=== PATIENT | female | born 1970 | race Caucasian/White ===

== ENCOUNTER 2020-03-07 12:01 | Emergency (ER) | payer OTHER ==
--- OUTSIDE RECORDS SUMMARY | 2020-03-07 12:03 | XMS REPORT | Clinical Summary ---
:1970 Author Organization [facility] Address [address] [place] [id number] Care Team Providers Name Role Phone Asked, Pcp Primary Care Provider Unavailable Allergies Not on File Medications Not on file Active Problems Not on file Encounters Date Type Specialty Care Team Description 09/15/2019 Transcribe Orders Procedural Sotero Khalil nsion, unspecified type (Primary Dx); Cardiology MD Juani Dyspnea on exer tion 09/01/2019 Transcribe Orders Procedural Sotero Khalil al hypertension, malignant (Primary Dx); Cardiology MD Juani Other forms of dyspnea after 03/07/2019 Social History Tobacco Use Types Packs/Day Years Used Date Never Assessed Sex Assigned at Date Recorded Not on file Job Start Date Occupation Industry Not on file Not on file Not on file Travel History Travel Start Travel End No recent travel history available. 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 after 03/07/[address] heart scan w physican order (09/15/2019 3:33 PM MECHANICAL CAD DRAFTER) Specimen Narrative Performed At This result has an attachment that is no t available. [facility] Nuclear Cardiology and Card iac CT [address] [facility] [address] [place] Calcium Scoring Re port Pat.Name: PAGE TOLEDO Pat.ID: [id number]Date: 09/15/2019 Refer.MD: SOTERO KHALIL MD Exam Time: 3:45:00 PM Study Type:CT Calcium Scoring Height: 66in Weight: 255lb BSA: 2.22 m2 Age: 12 1970,49Y Sex: FEMALE HR: 78 bpm Nuclear Tech:ESHA Salas)(CT) Pat. Stat.:Outpatient CPT - 4: [facility] Event ID:[id number] Order ID: [id number] Procedures: CT Flash mode Race: C SUMMARY: Technique: Sequential 3mm CT cuts were obtained through the chest using the Siemens Somatom Force CT scanner with ECG gating. In teractive image viewing and volumetric display and analysis were also performed. The CAC score was quantified using the Agatston scoring me thod. Non-contrast cardiac CT results are as follows: The total Coronary Artery Calcium Score (CACS) is 0 (Z ERO). The non-contrast CT shows a normal cardiac size, no pe ricardial abnormalities, a normal aortic root of 3.6cm, a normal ascending thoracic aorta of 3.5cm and a normal descending thor acic aorta of 2.6cm. The left main and right coronary arteries reji ear to originate normally from the left and right sinus of Valsalva. The right coronary artery is dominant. Non-Cardiac Findings: Fatty infiltration of the hilda er (HU 28). Conclusion: Normal non-contrast cardiac CT. The coronary artery ca lcium score indicates no significant coronary atherosclerosis and a <0.3% risk per year of a major cardiac event. A CACS of zero is obs erved in 85% of women at age 49 years. Recommendations: (1) Continue primary preventative strategies. FINDINGS: Signed 09/19/2019 01:02 PM Dao Pereira MD Procedure Note Interface, Radiology Results In - 2019 1:02 PM CDT Nuclear Cardiology and Cardiac CT [address] [place] [address] CT Calcium Scoring Report Pat.Name: PAGE TOLEDO Pat.I D: [id number] .Date: 09/15/2019 Refer .MD: SOTERO KHALIL MD Exam Time: 3:45:00 PM Study Type:CT Calcium Scoring Height: 66in Weigh t: 255lb BSA: 2.22 m2 Age: 12 1970,49Y Sex: FEMALE HR: 78 bpm Nuclear Tech:RT Josue(R)(CT) Pat. Stat.:Outpatient CPT - 4: [facility] Event ID:[id number] Order ID: [id number] Procedures: CT Flash mode Race: C SUMMARY: Technique: Sequential 3mm CT cuts were obtained thr ough the chest using the Siemens Somatom Force CT scanner with EC G gating. Interactive image viewing and volumetric display and jaclyn sis were also performed. The CAC score was quantified using the Agats ton scoring method. Non-contrast cardiac CT results are as f ollows: The total Coronary Artery Calcium Score (CACS) is 0 (ZERO). The non-contrast CT shows a normal cardi ac size, no pericardial abnormalities, a normal aortic root of 3 .6cm, a normal ascending thoracic aorta of 3.5cm and a normal de scending thoracic aorta of 2.6cm. The left main and right coronary arteries appear to originate normally from the left and right sinus o f Valsalva. The right coronary artery is dominant. Non-Cardiac Findings: Fatty infiltrati on of the liver (HU 28). Conclusion: Normal non-contrast cardiac CT. The yolande nary artery calcium score indicates no significant coronary athero sclerosis and a <0.3% risk per year of a major cardiac event. A CACS o f zero is observed in 85% of women at age 49 years. Recommendations: (1) Continue primary preventative strate gies. FINDINGS: Signed 09/19/2019 01:02 PM Dao Pereira MD Performing Organization Address City/State/[facility] Phone Number [facility] [address] [place] [address] after 03/07/2019 ([place]) [place] [address] Advance Directives For more information, please contact: [phone] Type Date Recorded Patient Equipment Man Explanati on Advance Directives, Living Will and Medical Power of District Administrative Assistant
--- OUTSIDE RECORDS SUMMARY | 2020-03-07 12:03 | XMS REPORT | Continuity of Care Document ---
:1970 Author Organization [facility] t Address [address] [place] [id number] Care Team Providers Name Role Phone Asked, Pcp Primary Care Physician Unavailable RAIZSHANA Attending Clinician Unavailable Payers Payer Name Policy Type Policy Number Effective Date Expiration Date Doron mercedes AETNAAETNA PPO xxxxxxxxx 2012 [place] OPEN 00:00:00 [place] CHOICExxxxxxxxx2012-PresentP PO Problems Condition Condition Condition Status Onset Resolution Last Treating Co mments Source Name Details Category Date Date Treatment Clinician Date Obesity Obesity Problem [facility] Hypertensi Hypertensi Problem Active [facility] Diabetes Diabetes Problem [facility] mellitus [facility] - type 2, type 2, [facility] controlled controlled l [facility] Sinusitis Sinusitis Problem [facility] chronic, chronic, [facility] frontal frontal [facility] Screening Screening Problem Active [facility] for breast for breast Radha kes - cancer cancer [facility] Severe Severe Problem Active [facility] episode of episode of Radha kes - recurrent recurrent Jarad evie major major l depressive depressive Ou tpati disorder, disorder, ent without without Clinics psychotic psychotic features features BMI BMI Problem Active [facility] 40.0-44.9, 40.0-44.9, Radha kes - adult adult [facility] Allergies, Adverse Reactions, Alerts This patient has no known allergies or adverse reactions. Social History Social Habit Start Date Stop Date Quantity Comments Source Sex Assigned At Ema jennings [facility] Medications Ordered Filled Start Stop Current Ordering Indication Dosage Frequency Signature Comments Components Source Medication Medication Date Date Medication? Clinician (SIG) Name Name Jose Garcia 2020-0 2020- Yes Codie [address] [facility] 8-17 11-15 [facility] [facility] :00 [facility] Lisinopril- Lisinopril- Yes Codie [address] [facility] Hydrochloro Hydrochloro 7-15 [place] [facility] - thiazide thiazide 00:00: [facility] 00 [facility] Procedures Procedure Date / Time Performed Performing Clinician Sourc e CT HEART SCAN W 2019-09-15 15:33:28 Sotero Khalil PHYSICIAN ORDER Plan of Care Planned Activity Planned Date Details Comments Source Future Scheduled 2020-04-11 INFLUENZA VACCINE [place] [facility] 00:00:00 [code = INFLUENZA VACCINE] Future Scheduled 1991 Screening for [facility] Test 00:00:00 malignant neoplasm of cervix (procedure) [code = 595023910] Encounters Start End Encounter Admission Attending Care Care Encounter Source Date/Time Date/Time Type Type Clinicians Facility Department ID 2020-02-26 2020-02-26 [facility] [id number] [facility] 16:20:00 16:20:00 [facility] Medicine Outpati ent Clinics 2020-01-24 2020-01-24 [facility] [id number] 14:40:00 14:40:00 [facility] Medicine Medicine Outpati ent Clinics 2019-12-28 2019-12-28 [facility] [id number] 11[facility]40:00 11:40:00 [facility] Medicine Medicine Outpati ent Clinics 2019-09-15 2019-09-15 Outpatient AFTAB Nino [facility] [id number] [place] 00:00:00 00:00:00 SOTERO Baer [facility] 2019-07-26 2019-07-26 [facility] [id number] 10:40:00 10:40:00 [facility] Medicine Outpati ent Clinics 2018-09-22 2018-09-22 [facility] [id number] 10:55:00 10:55:00 t [facility] Medicine Outpati ent Clinics 2018-07-27 2018-07-27 [facility] [id number] [address] 13:00:00 13:00:00 [facility] Medicine Outpati ent Clinics 2018-07-06 2018-07-06 [facility] [id number] 16:59:00 16:59:00 t [facility] Medicine Outpati ent Clinics 2018-06-24 2018-06-24 [facility] [id number] 10:30:00 10:30:00 t [facility] Medicine Outpati ent Clinics 2018-02-10 2018-02-10 [facility] [id number] 14:13:00 14:13:00 t [facility] Medicine Outpati ent Clinics 2018-01-31 2018-01-31 [facility] [id number] 10:59:00 10:59:00 t [facility] Medicine Outpati ent Clinics 2018-01-21 2018-01-21 [facility] [id number] 08:30:00 08:30:00 [facility] Medicine Outpati ent Clinics 2017-11-04 2017-11-04 [facility] [id number] 13:00:00 13:00:00 [facility] Medicine Outpati ent Clinics Results This patient has no known results.
--- OUTSIDE RECORDS SUMMARY | 2020-03-07 12:03 | XMS REPORT ---
:1970 Author Organization [employer] Care Team Providers Name Role Phone Codie Gonzales Provider Role Unavailable Allergies, Adverse Reactions, Alerts Substance Reaction Event Type N.K.D.A. 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, without psychotic features Problem Screening for breast cancer Z12.39 Active Problem Asymptomatic microscopic hematuria R31.21 Active Problem Right flank pain R10.9 Active Assessment Dysuria R30.0 Active Problem Obesity E66.9 Active Assessment Benign essential microscopic R31.1 Active hematuria Problem Hypertension I10 Active Medications Medication Code System Code Instructions Start End Date Status Dos age Date Lisinopril [facility] 36692554941 20 MG Orally Jul 26, Active 1 ta blet Once a day 2019 Bactrim DS [facility] 80673598801 800-160 MG December 27January 01, Active 1 ta blet Orally Twice a 2020 2020 day Lovastatin ND 72889132584 10 MG Orally Jul 26, Active 1 ta blet Once a day 2019 with the evening meal Results No Known Results Summary Purpose eClinicalWorks Submission
--- OUTSIDE RECORDS SUMMARY | 2020-03-07 12:03 | XMS REPORT ---
:1970 Author Organization [employer] Care Team Providers Name Role Phone Codie Gonzales Provider Role Unavailable Allergies, Adverse Reactions, Alerts Substance Reaction Event Type N.K.D.A. 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, without psychotic features Problem Screening for breast cancer Z12.39 Active Problem BMI 40.0-44.9, adult Z68.41 Active Problem Hypertension I10 Active Problem Obesity E66.9 Active Problem Sinusitis chronic, frontal J32.1 A ctive Problem Diabetes mellitus type 2, controlled E11.9 Active Medications Medication Code Code Instructions Start End Status Dosage System Date Date Lisinopril-Hyd [facility] 46594009530 20-12.5 MG January 23, Active 1 tablet rochlorothiazi Orally Once a 2020 day Lisinopril [facility] 46737728778 20 MG Orally Jul 26, Active 1 ta blet Once a day 2019 Lovastatin ND 11309098185 10 MG Orally Jul 26, Active 1 ta blet Once a day 2019 with the evening meal Results No Known Results Summary Purpose eClinicalWorks Submission
--- OUTSIDE RECORDS SUMMARY | 2020-03-07 12:03 | XMS REPORT ---
:1970 Author Organization [employer] Care Team Providers Name Role Phone Codie Gonzales Provider Role Unavailable Allergies, Adverse Reactions, Alerts Substance Reaction Event Type N.K.D.A. 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, without psychotic features Problem Screening for breast cancer Z12.39 Active Problem BMI 40.0-44.9, adult Z68.41 Active Problem Hypertension I10 Active Problem Obesity E66.9 Active Problem Sinusitis chronic, frontal J32.1 A ctive Problem Diabetes mellitus type 2, controlled E11.9 Active Medications Medication Code Code Instructions Start End Date Status Dosage System Date Lisinopril-Hyd [facility] 63062856298 20-12.5 MG January 23, Active 1 tablet rochlorothiazi Orally Once a 2019 day Steglatro [facility] 89234525587 5 MG Orally Once Feb 25, May 26, Active 1 tablet a day 2019 2019 Results Name Result Date Reference Range Unit Abnormali ty Flag HEMOGLOBIN A1C ----A1C 6.8 [id number] Summary Purpose eClinicalWorks Submission
--- NOTE | 2020-03-07 13:05 | ER ---
Nurse's Notes [facility] Name: Page Celestin Age: 49 yrs Sex: Female : 1970 Arrival Date: 03/07/2020 Time: 12:04 Bed 7 Private MD: Diagnosis: Encounter for screening for other viral diseases;Acute upper respiratory infection, unspecified;Nausea and vomiting Presentation: 03/07 12:37 Chief complaint: Patient states: sore throat, cough, body aches, headache, fever x 2 sv days. " I need to get tested for COVID because I can't go back to work.". Coronavirus screen: Client denies travel out of the [place] in the last 14 days. cough unrelated to allergies, fever, headache, muscle pain, sore throat. Coronavirus screen: Client presents with at least one sign or symptom that may indicate coronavirus-19. Standard/surgical mask placed on the client. Provider contacted for isolation considerations. Ebola Screen: No symptoms or risks identified at this time. Risk Assessment: Do you want to hurt yourself or someone else? Patient reports no desire to harm self or others. Onset of symptoms was March 05, 2020. 12:37 Method Of Arrival: Ambulatory sv 12:37 Acuity: KYRA 4 sv 12:38 Initial Sepsis Screen: Does the patient meet any 2 criteria? No. Patient's initial sv sepsis screen is negative. Does the patient have a suspected source of infection? No. Patient's initial sepsis screen is negative. Triage Assessment: 12:45 General: Appears in no apparent distress. uncomfortable, obese, Behavior is bp cooperative, appropriate for age, anxious. Pain: Complains of pain in head. EENT: Reports pain when swallowing. Neuro: No deficits noted. Cardiovascular: No deficits noted. Respiratory: No deficits noted. GI: No signs and/or symptoms were reported involving the gastrointestinal system. : No signs and/or symptoms were reported regarding the genitourinary system. Derm: No deficits noted. Musculoskeletal: No deficits noted. Historical: - Allergies: 12:38 No Known Allergies; sv - PMHx: 12:38 Diabetes - NIDDM; Hypertension; sv - PSHx: 12:38 Hysterectomy; sv - Immunization history:: Adult Immunizations up to date. - Social history:: Smoking status: Patient denies any tobacco usage or history of. Screenin:01 Abuse screen: Denies threats or abuse. Denies injuries from another. Nutritional bp screening: No deficits noted. Tuberculosis screening: No symptoms or risk factors identified. Fall Risk None identified. Assessment: 12:45 General: SEE TRIAGE NOTE. bp 12:45 Respiratory: Airway is patent Respiratory effort is even, unlabored, Breath sounds are bp clear bilaterally. EENT: Throat is reddened. 13:24 Reassessment: PT D/C HOME AMBULATORY, DX WITH VIRAL URI. bp Vital Signs: 12:38 BP 116 / 57; Pulse 76; Resp 18; Temp 99.9(TE); Pulse Ox 98% on R/A; Weight 113.4 kg; sv Height 5 ft. 6 in. (167.64 cm); 13:24 BP 116 / 64; Pulse 84; Resp 16; Temp 99.7; Pulse Ox 99% ; bp 12:38 Body Mass Index 40.35 (113.40 kg, 167.64 cm) sv ED Course: 12:04 Patient arrived in ED. ds1 12:37 Arm band placed on. sv 12:38 Triage completed. sv 12:42 Kavin Horton PA is PHCP. jr8 12:42 Kenrick Bacon MD is Attending Physician. jr8 12:48 Valentino Husain, GLORY is Primary Nurse. bp 13:01 Patient has correct armband on for positive identification. Bed in low position. Call bp light in reach. Side rails up X2. 13:24 No provider procedures requiring assistance completed. Patient did not have IV access bp during this emergency room visit. Administered Medications: No medications were administered Outcome: 13:05 Discharge ordered by . jr8 13:24 Discharged to home ambulatory. bp 13:24 Condition: stable 13:24 Discharge instructions given to patient, Instructed on discharge instructions, follow up and referral plans. medication usage, Demonstrated understanding of instructions, follow-up care, medications, Prescriptions given X 2. 13:25 Patient left the ED. bp Addendum: 03/09/2020 10:25 Addendum: COVID-19 Result: Positive result giiven to ED physician to notify pt. i w Physician: Juanjose Hightower MD Physician was able to contact pt and pt was notified of positive COVID-19 swab result. Physician answered pt questions. Signatures: Jadyn, Aislinn, RN RN Maribel Young ds1 Lilia Child, RN RN iw Kavin Horton PA PA jr8 Valentino Husain RN RN bp
--- NOTE | 2020-03-07 13:05 | EDPHYS ---
Physician Documentation [facility] Name: Page Celestin Age: 49 yrs Sex: Female : 1970 Arrival Date: 03/07/2020 Time: 12:04 Bed 7 Private MD: ED Physician Kenrick Bacon HPI: 03/07 13:06 This 49 yrs old Female presents to ER via Ambulatory with complaints of Sore jr8 Throat, Cough, Headache. 13:06 The patient presents with sore throat. Onset: The symptoms/episode began/occurred jr8 suddenly, 3 day(s) ago. Severity of symptoms: At their worst the symptoms were mild, in the emergency department the symptoms are unchanged. Modifying factors: The symptoms are alleviated by nothing, the symptoms are aggravated by swallowing. Associated signs and symptoms: Pertinent positives: chills, cough, earache, fever, nausea, vomiting. The patient has not experienced similar symptoms in the past. The patient has not recently seen a physician. Historical: - Allergies: 12:38 No Known Allergies; sv - PMHx: 12:38 Diabetes - NIDDM; Hypertension; sv - PSHx: 12:38 Hysterectomy; sv - Immunization history:: Adult Immunizations up to date. - Social history:: Smoking status: Patient denies any tobacco usage or history of. ROS: 13:06 Eyes: Negative for injury, pain, redness, and discharge, Neck: Negative for injury, jr8 pain, and swelling, Cardiovascular: Negative for chest pain, palpitations, and edema, Back: Negative for injury and pain, MS/Extremity: Negative for injury and deformity, Skin: Negative for injury, rash, and discoloration, Neuro: Negative for headache, weakness, numbness, tingling, and seizure. 13:06 Constitutional: Positive for body aches, chills, fever. 13:06 ENT: Positive for ear pain, sore throat. 13:06 Respiratory: Positive for cough. 13:06 Abdomen/GI: Positive for nausea, vomiting, and diarrhea, Negative for abdominal pain. Exam: 13:06 Eyes: Pupils equal round and reactive to light, extra-ocular motions intact. Lids and jr8 lashes normal. Conjunctiva and sclera are non-icteric and not injected. Cornea within normal limits. Periorbital areas with no swelling, redness, or edema. ENT: Nares patent. No nasal discharge, no septal abnormalities noted. Tympanic membranes are normal and external auditory canals are clear. Oropharynx with no redness, swelling, or masses, exudates, or evidence of obstruction, uvula midline. Mucous membranes moist. Neck: Trachea midline, no thyromegaly or masses palpated, and no cervical lymphadenopathy. Supple, full range of motion without nuchal rigidity, or vertebral point tenderness. No Meningismus. Cardiovascular: Regular rate and rhythm with a normal S1 and S2. No gallops, murmurs, or rubs. Normal PMI, no JVD. No pulse deficits. Respiratory: Lungs have equal breath sounds bilaterally, clear to auscultation and percussion. No rales, rhonchi or wheezes noted. No increased work of breathing, no retractions or nasal flaring. Abdomen/GI: Soft, non-tender, with normal bowel sounds. No distension or tympany. No guarding or rebound. No evidence of tenderness throughout. Back: No spinal tenderness. No costovertebral tenderness. Full range of motion. Skin: Warm, dry with normal turgor. Normal color with no rashes, no lesions, and no evidence of cellulitis. MS/ Extremity: Pulses equal, no cyanosis. Neurovascular intact. Full, normal range of motion. Neuro: Awake and alert, GCS 15, oriented to person, place, time, and situation. Cranial nerves II-XII grossly intact. Motor strength 5/5 in all extremities. Sensory grossly intact. Cerebellar exam normal. Normal gait. Vital Signs: 12:38 BP 116 / 57; Pulse 76; Resp 18; Temp 99.9(TE); Pulse Ox 98% on R/A; Weight 113.4 kg; sv Height 5 ft. 6 in. (167.64 cm); 13:24 BP 116 / 64; Pulse 84; Resp 16; Temp 99.7; Pulse Ox 99% ; bp 12:38 Body Mass Index 40.35 (113.40 kg, 167.64 cm) sv MDM: 12:43 Patient medically screened. [facility] 13:04 Data reviewed: vital signs, nurses notes, lab test result(s), and as a result, I will jr discharge patient. Data interpreted: Pulse oximetry: on room air is 98 %. Interpretation: normal. Counseling: I had a detailed discussion with the patient and/or guardian regarding: the historical points, exam findings, and any diagnostic results supporting the discharge/admit diagnosis, lab results, the need for outpatient follow up, a family practitioner, to return to the emergency department if symptoms worsen or persist or if there are any questions or concerns that arise at home. 03/07 12:43 Order name: EMILY jr8 Administered Medications: No medications were administered Disposition: 18:36 Co-signature as Attending Physician, Kenrick Bacon MD. rn Disposition: 03/07/20 13:05 Discharged to Home. Impression: Encounter for screening for other viral diseases, Acute upper respiratory infection, unspecified, Nausea and vomiting. - Condition is Stable. - Discharge Instructions: Nausea and Vomiting, Adult, Upper Respiratory Infection, Adult, COVID-19. - Prescriptions for Zofran 4 mg Oral Tablet - take 1 tablet by ORAL route every 12 hours As needed; 20 tablet. Zithromax Z- Jose Elias 250 mg Oral Tablet - take 1 tablet by ORAL route as directed for 5 days Day 1 - take two (2) tablets one time. Day 2, 3, 4 , 5 take one (1) tablet once daily.; 6 tablet. - Medication Reconciliation Form, Thank You Letter, Antibiotic Education, Prescription Opioid Use form. - Follow up: Private Physician; When: 1 week; Reason: Recheck today's complaints, Continuance of care, Re-evaluation by your physician. - Problem is new. - Symptoms are unchanged. Signatures: Dispatcher [employer] Aislinn Hayes RN RN sv Nieto, Roman, MD MD rn Roszak, Josh, PA PA jr8 Valentino Husain RN RN bp Corrections: (The following items were deleted from the chart) 13:25 13:05 03/07/2020 13:05 Discharged to Home. Impression: Encounter for screening for bp other viral diseases; Acute upper respiratory infection, unspecified; Nausea and vomiting. Condition is Stable. Forms are Medication Reconciliation Form, Thank You Letter, Antibiotic Education, Prescription Opioid Use. Follow up: Private Physician; When: 1 week; Reason: Recheck today's complaints, Continuance of care, Re-evaluation by your physician. Problem is new. Symptoms are unchanged. jr8
[2020-03-11 23:50] VITALS: BP 116/64; TEMP 99.7; O2SAT 99
== END 2020-03-07 13:25 | disposition home or self-care (01) ==
LOC: ER 12:01
DX: U07.1 COVID-19 (principal); J06.9 Acute upper respiratory infection, unspecified; I10 Essential (primary) hypertension
CPT/HCPCS: 99282; U0002

== ENCOUNTER 2023-01-09 17:03 | Inpatient (IN) | payer BC ==
--- OUTSIDE RECORDS SUMMARY | 2023-01-09 17:08 | XMS REPORT | Continuity of Care Document ---
:1970 Author Organization [facility] t Address [address] [place] [address] [place] [id number] Care Team Providers Name Role Phone Asked, No Pcp Primary Care Physician Unavailable Codie Gonzales Attending Clinician Unavailable ANTONIO UGALDE Attending Clinician Unavailable Payers Payer Name Policy Type Policy Number Effective Date Expiration Date S ourricardo [employer] 6 [id number] 2021 [facility] [employer] of 0 00:00:00 - [facility] Problems Condition Condition Condition Status Onset Resolution Last Treating Co mments Source Name Details Category Date Date Treatment Clinician Date [id number] Seasonal Problem Comm on allergies [facility] Obesity Obesity Problem Common [facility] Hypertensi Hypertensi Problem C ommon on on [facility] [id number] Sinusitis Problem Comm on chronic, [facility] frontal [facility] Type II Diabetes Problem Common diabetes mellitus Spirit mellitus type 2, - [facility] well controlled [facility] [id number] Screening Problem Com mon for breast [facility] 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 adult [facility] [id number] Mid back Problem Comm on pain [facility] [id number] Epigastric Problem Com mon pain [facility] Allergies, Adverse Reactions, Alerts This patient has no known allergies or adverse reactions. Social History Social Habit Start Date Stop Date Quantity Comments Source History of Tobacco [facility] - Use [facility] Gender identity [facility] Sexual orientation Method [facility] Sex Assigned At [birth year] [facility] 00:00:00 00:00:00 Smoking Status Start Date Stop Date Source Tobacco smoking consumption Meth [facility] unknown Never Smoker [facility] Medications Ordered Filled Start Stop Current Ordering Indication Dosage Frequency Signature Comments Components Source Medication Medication Date Date Medication? Clinician (SIG) Name Name hydroCHLORO hydroCHLORO No 1{table QD hydroCHLOR thiazide 25 thiazide 25 1-10 t_in_th Othiazide MG MG 00:00: e_morni 25 MG 00 ng} hydroCHLORO hydroCHLORO No 1{table QD hydroCHLOR thiazide 25 thiazide 25 1-10 t_in_th Othiazide MG MG 00:00: e_morni 25 MG 00 ng} Ciprofloxac Ciprofloxac 2022- No 1{table BID Ciprofloxa in HCl 500 in HCl 500 1-10 01-13 t} meera HCl MG MG 00:00: 00:00 500 MG 00 :00 Lisinopril Lisinopril 2021-07 No 1{table QD Lisinopril 40 MG 40 MG 0-03 t} 40 MG 00:00: 00 Lisinopril Lisinopril 1 No 1{table QD Lisinopril 40 MG 40 MG 0-03 t} 40 MG 00:00: 00 Lisinopril Lisinopril 2021-1 No 1{table QD Lisinopril 40 MG 40 MG 0-03 t} 40 MG 00:00: 00 Lisinopril Lisinopril 2021-1 No 1{table QD Lisinopril 40 MG 40 MG 0-03 t} 40 MG 00:00: 00 Tobramycin Tobramycin 2021- No 1{drop_ BID Tobramycin 0.3 % 0.3 % 01-14 into_af 0.3 % 00:00: fected_ 00 eye} Tobramycin Tobramycin 2022-0 No 1{drop_ BID Tobramycin 0.3 % 0.3 % 7-06 into_af 0.3 % 00:00: fected_ 00 eye} Tobramycin Tobramycin 2021-0 No 1{drop_ BID Tobramycin 0.3 % 0.3 % 7-06 into_af 0.3 % 00:00: fected_ 00 eye} Tobramycin Tobramycin 2021-0 No 1{drop_ BID Tobramycin 0.3 % 0.3 % 7-06 into_af 0.3 % 00:00: fected_ 00 eye} Tobramycin Tobramycin 2021-0 No 1{drop_ BID Tobramycin 0.3 % 0.3 % 7-06 into_af 0.3 % 00:00: fected_ 00 eye} Cortisporin Cortisporin 2021-0 No TID Cortispori otic drops otic drops 7-05 n otic standard standard 00:00: drops concentrati concentrati 00 standard on on concentrat ion Cortisporin Cortisporin 2-0 No TID Cortispori otic drops otic drops 7-05 n otic standard standard 00:00: drops concentrati concentrati 00 standard on on concentrat ion Cortisporin Cortisporin 2022-0 No TID Cortispori otic drops otic drops 7-05 n otic standard standard 00:00: drops concentrati concentrati 00 standard on on concentrat ion Cortisporin Cortisporin 2022-0 No TID Cortispori otic drops otic drops 7-05 n otic standard standard 00:00: drops concentrati concentrati 00 standard on on concentrat ion Cortisporin Cortisporin 2022-0 No TID Cortispori otic drops otic drops 7-05 n otic standard standard 00:00: drops concentrati concentrati 00 standard on on concentrat ion Cortisporin Cortisporin 2022-0 No TID Cortispori otic drops otic drops 7-05 n otic standard standard 00:00: drops concentrati concentrati 00 standard on on concentrat ion Pseudoeph-B Pseudoeph-B 2-0 2022- No 5{ml_as Pseudoeph- romphen-DM romphen-DM 10-07 _needed Bromphen-D 00:00: 00:00 } M 30-2-10 MG/5ML MG/5ML 00 :00 MG/5ML Pseudoeph-B Pseudoeph-B 2021- No 5{ml_as Pseudoeph- romphen-DM romphen-DM 10-07 _needed Bromphen-D 00:00: 00:00 } M 30-2-10 MG/5ML MG/5ML 00 :00 MG/5ML Pseudoeph-B Pseudoeph-B 2021- No 5{ml_as Pseudoeph- romphen-DM romphen-DM 10-07 _needed Bromphen-D 00:00: 00:00 } M 30-2-10 MG/5ML MG/5ML 00 :00 MG/5ML predniSONE predniSONE 2021- No 1{table QD predniSONE 20 MG 20 MG 10-07-05 t} 20 MG 00:00: 00:00 00 :00 predniSONE predniSONE 2021-2021- No 1{table QD predniSONE 20 MG 20 MG 10-07-05 t} 20 MG 00:00: 00:00 00 :00 Sulfamethox Sulfamethox 2021- No 1{table BID Sulfametho azole-Trime azole-Trime 09-02-25 t} xazole-Tri thoprim thoprim 00:00: 00:00 methoprim 800-160 MG 800-160 MG 00 :00 800-160 MG Omeprazole Omeprazole 2020-07 No QD Omeprazole 40 MG 40 MG 1-29 40 MG 00:00: 00 Omeprazole Omeprazole 2020-07 No QD Omeprazole 40 MG 40 MG -29 40 MG 00:00: 00 CeleBREX CeleBREX 2020-07 No 1{capsu QD CeleBREX 200 MG 200 MG 0-19 le_with 200 MG 00:00: _food} 00 CeleBREX CeleBREX 2020-07 No 1{capsu QD CeleBREX 200 MG 200 MG 0-19 le_with 200 MG 00:00: _food} 00 CeleBREX CeleBREX 2020-07 No 1{capsu QD CeleBREX 200 MG 200 MG 0-19 le_with 200 MG 00:00: _food} CeleBREX CeleBREX 2020-07 No 1{capsu QD CeleBREX 200 MG 200 MG 0-19 le_with 200 MG 00:00: _food} CeleBREX CeleBREX 2020-07 No 1{capsu QD CeleBREX 200 MG 200 MG 0-19 le_with 200 MG 00:00: _food} CeleBREX CeleBREX 2020-07 No 1{capsu QD CeleBREX 200 MG 200 MG 0-19 le_with 200 MG 00:00: _food} CeleBREX CeleBREX 2020-07 No 1{capsu QD CeleBREX 200 MG 200 MG 0-19 le_with 200 MG 00:00: _food} CeleBREX CeleBREX 2020-07 No 1{capsu QD CeleBREX 200 MG 200 MG 0-19 le_with 200 MG 00:00: _food} Januvia 100 Januvia 100 2020-0 No 1{table QD Januvia MG MG 9-22 t} 100 MG 00:00: 00 Januvia 100 Januvia 100 2020-0 No 1{table QD Januvia MG MG 9-22 t} 100 MG 00:00: 00 Januvia 100 Januvia 100 2020-0 No 1{table QD Januvia MG MG 9-22 t} 100 MG 00:00: 00 Januvia 100 Januvia 100 2020-0 No 1{table QD Januvia MG MG 9-22 t} 100 MG 00:00: 00 Januvia 100 Januvia 100 2020-0 No 1{table QD Januvia MG MG 9-22 t} 100 MG 00:00: 00 Januvia 100 Januvia 100 2020-0 No 1{table QD Januvia MG MG 9-22 t} 100 MG 00:00: 00 Januvia 100 Januvia 100 2020-0 No 1{table QD Januvia MG MG 9-22 t} 100 MG 00:00: 00 Januvia 100 Januvia 100 2020-0 No 1{table QD Januvia MG MG 9-22 t} 100 MG 00:00: 00 Steglatro Steglatro 2020-0 No 1{table QD Steglatro 15 MG 15 MG 1-06 t} 15 MG 00:00: 00 Steglatro Steglatro 2020-0 No 1{table QD Steglatro 15 MG 15 MG 1-06 t} 15 MG 00:00: 00 Steglatro Steglatro 2020-0 No 1{table QD Steglatro 15 MG 15 MG 1-06 t} 15 MG 00:00: 00 Bactrim DS Bactrim DS 2020-0 2020- No Codie 1 tablet Common 9-18 -28 [facility] 00:00: 00:00 - [facility] 00 :00 [facility] Steglatro Steglatro 2020-0 2020- No Codie 1 tablet Common 8-17 11-15 [facility] 00:00: 00:00 - [facility] 00 :00 [facility] Lisinopril- Lisinopril- 2020-0 Yes Codie 1 tablet Common Hydrochloro Hydrochloro 7-15 [facility] thiazide thiazide 00:00: - [facility] 00 [facility] Lisinopril- Lisinopril- 2020-0 No 1{table QD Lisinopril hydroCHLORO hydroCHLORO 7-15 t} -hydroCHLO thiazide thiazide 00:00: ROthiazide 20-12.5 MG 20-12.5 MG 00 20-12.5 MG Lisinopril- Lisinopril- 2020-0 No 1{table QD Lisinopril hydroCHLORO hydroCHLORO 7-15 t} -hydroCHLO thiazide thiazide 00:00: ROthiazide 20-12.5 MG 20-12.5 MG 00 20-12.5 MG Lisinopril- Lisinopril- 2020-0 No 1{table QD Lisinopril hydroCHLORO hydroCHLORO 7-15 t} -hydroCHLO thiazide thiazide 00:00: ROthiazide 20-12.5 MG 20-12.5 MG 00 20-12.5 MG Lisinopril- Lisinopril- 2020-0 No 1{table QD Lisinopril hydroCHLORO hydroCHLORO 7-15 t} -hydroCHLO thiazide thiazide 00:00: ROthiazide 20-12.5 MG 20-12.5 MG 00 20-12.5 MG Lisinopril- Lisinopril- 2020-0 No 1{table QD Lisinopril hydroCHLORO hydroCHLORO 7-15 t} -hydroCHLO thiazide thiazide 00:00: ROthiazide 20-12.5 MG 20-12.5 MG 00 20-12.5 MG Lisinopril- Lisinopril- 2020-0 No 1{table QD Lisinopril hydroCHLORO hydroCHLORO 7-15 t} -hydroCHLO thiazide thiazide 00:00: ROthiazide 20-12.5 MG 20-12.5 MG 00 20-12.5 MG Lisinopril- Lisinopril- 2020-0 No 1{table QD Lisinopril hydroCHLORO hydroCHLORO 7-15 t} -hydroCHLO thiazide thiazide 00:00: ROthiazide 20-12.5 MG 20-12.5 MG 00 20-12.5 MG Lisinopril- Lisinopril- 2020-0 No 1{table QD Lisinopril hydroCHLORO hydroCHLORO 7-15 t} -hydroCHLO thiazide thiazide 00:00: ROthiazide 20-12.5 MG 20-12.5 MG 00 20-12.5 MG Lisinopril- Lisinopril- 2020-0 No 1{table QD Lisinopril hydroCHLORO hydroCHLORO 7-15 t} -hydroCHLO thiazide thiazide 00:00: ROthiazide 20-12.5 MG 20-12.5 MG 00 20-12.5 MG Lisinopril- Lisinopril- 2020-0 No 1{table QD Lisinopril hydroCHLORO hydroCHLORO 7-15 t} -hydroCHLO thiazide thiazide 00:00: ROthiazide 20-12.5 MG 20-12.5 MG 00 20-12.5 MG Lisinopril- Lisinopril- 2020-0 No 1{table QD Lisinopril hydroCHLORO hydroCHLORO 7-15 t} -hydroCHLO thiazide thiazide 00:00: ROthiazide 20-25 MG 20-25 MG 00 20-25 MG Lisinopril- Lisinopril- 2020-0 No 1{table QD Lisinopril hydroCHLORO hydroCHLORO 7-15 t} -hydroCHLO thiazide thiazide 00:00: ROthiazide 20-25 MG 20-25 MG 00 20-25 MG Lisinopril- Lisinopril- 2020-0 No 1{table QD Lisinopril hydroCHLORO hydroCHLORO 7-15 t} -hydroCHLO thiazide thiazide 00:00: ROthiazide 20-25 MG 20-25 MG 00 20-25 MG Lisinopril- Lisinopril- 2020-0 No 1{table QD Lisinopril hydroCHLORO hydroCHLORO 7-15 t} -hydroCHLO thiazide thiazide 00:00: ROthiazide 20-25 MG 20-25 MG 00 20-25 MG Lisinopril- Lisinopril- 2020-0 No 1{table QD Lisinopril hydroCHLORO hydroCHLORO 7-15 t} -hydroCHLO thiazide thiazide 00:00: ROthiazide 20-25 MG 20-25 MG 00 20-25 MG Lisinopril- Lisinopril- 2020-0 No 1{table QD Lisinopril hydroCHLORO hydroCHLORO 7-15 t} -hydroCHLO thiazide thiazide 00:00: ROthiazide 20-25 MG 20-25 MG 00 20-25 MG Lisinopril- Lisinopril- 2020-0 No 1{table QD Lisinopril hydroCHLORO hydroCHLORO 7-15 t} -hydroCHLO thiazide thiazide 00:00: ROthiazide 20-12.5 MG 20-12.5 MG 00 20-12.5 MG Toradol Toradol 2017-07 No 60mg Common (Ketorolac) (Ketorolac) 2-14 [facility] 00:00: - [facility] Toradol Toradol 2017-07 No 60mg Common (Ketorolac) (Ketorolac) 2-14 S [facility] 00:00: - [facility] Toradol Toradol 2017-07 No 60mg Common (Ketorolac) (Ketorolac) 2-14 S [facility]irit 00:00: - [facility] Toradol Toradol 2017-07 No 60mg Common (Ketorolac) (Ketorolac) 2-14 S [facility]irit 00:00: - [facility] Toradol Toradol 2017-07 No 60mg Common (Ketorolac) (Ketorolac) 2-14 S [facility] 00:00: - [facility] 00 [facility] Toradol Toradol 2018- No 60mg Common (Ketorolac) (Ketorolac) 2-14 S [facility] 00:00: - [facility] 00 [facility] Toradol Toradol 2018- No 60mg Common (Ketorolac) (Ketorolac) 2-14 S [facility] 00:00: - [facility] 00 [facility] Toradol Toradol 2018- No 60mg Common (Ketorolac) (Ketorolac) 2-14 S [facility] 00:00: - [facility] 00 [facility] Toradol Toradol 2018- No 60mg Common (Ketorolac) (Ketorolac) 2-14 S [facility]irit 00:00: - [facility] 00 [facility] Toradol Toradol 2017- No 60mg Common (Ketorolac) (Ketorolac) 2-14 S [facility] 00:00: - [facility] 00 [facility] Toradol Toradol 2018- No 60mg Common (Ketorolac) (Ketorolac) 2-14 S [facility] 00:00: - [facility] 00 [facility] Toradol Toradol 2018- No 60mg Common (Ketorolac) (Ketorolac) 2-14 S [facility]irit 00:00: - [facility] 00 [facility] Omeprazole Omeprazole No QD Omeprazole 40 MG 40 MG 40 MG Omeprazole Omeprazole No QD Omeprazole 40 MG 40 MG 40 MG Omeprazole Omeprazole No QD Omeprazole 40 MG 40 MG 40 MG Omeprazole Omeprazole No QD Omeprazole 40 MG 40 MG 40 MG Omeprazole Omeprazole No QD Omeprazole 40 MG 40 MG 40 MG Omeprazole Omeprazole No QD Omeprazole 40 MG 40 MG 40 MG Januvia 100 Januvia 100 No 1{table QD Januvia MG MG t} 100 MG Omeprazole Omeprazole No QD Omeprazole 40 MG 40 MG 40 MG Januvia 100 Januvia 100 No 1{table QD Januvia MG MG t} 100 MG Omeprazole Omeprazole No QD Omeprazole 40 MG 40 MG 40 MG Januvia 100 Januvia 100 No 1{table QD Januvia MG MG t} 100 MG Januvia 100 Januvia 100 No 1{table QD Januvia MG MG t} 100 MG Omeprazole Omeprazole No QD Omeprazole 40 MG 40 MG 40 MG Januvia 100 Januvia 100 No 1{table QD Januvia MG MG t} 100 MG Omeprazole Omeprazole No QD Omeprazole 40 MG 40 MG 40 MG Januvia 100 Januvia 100 No 1{table QD Januvia MG MG t} 100 MG Januvia 100 Januvia 100 No 1{table QD Januvia MG MG t} 100 MG Januvia 100 Januvia 100 No 1{table QD Januvia MG MG t} 100 MG Januvia 100 Januvia 100 No 1{table QD Januvia MG MG t} 100 MG Immunizations Ordered Immunization Filled Immunization Date Status Commen ts Source Name Name Moderna COVID-19 Moderna COVID-19 2020-12-10 Completed [facility] 11:50:00 - [facility] Moderna COVID-19 Moderna COVID-19 2020-12-10 Completed [facility] Vaccine Vaccine 11:50:00 - [facility] Moderna COVID-19 Moderna COVID-19 2020-12-10 Completed [facility] Vaccine Vaccine 11:50:00 - [facility] Moderna COVID-19 Moderna COVID-19 2020-12-10 Completed [facility] Vaccine Vaccine 11:50:00 - [facility] Moderna COVID-19 Moderna COVID-19 2020-12-10 Completed [facility] Vaccine Vaccine 11:50:00 - [facility] Moderna COVID-19 Moderna COVID-19 2020-12-10 Completed [facility] Vaccine Vaccine 11:50:00 - [facility] Moderna COVID-19 Moderna COVID-19 2020-12-10 Completed [facility] Vaccine Vaccine 11:50:00 - [facility] Moderna COVID-19 Moderna COVID-19 2020-12-10 Completed [facility] Vaccine Vaccine 11:50:00 - [facility] Moderna COVID-19 Moderna COVID-19 2020-12-10 Completed [facility] Vaccine Vaccine 11:50:00 - [facility] Moderna COVID-19 Moderna COVID-19 2020-12-10 Completed [facility] Vaccine Vaccine 11:50:00 - [facility] Moderna COVID-19 Moderna COVID-19 2020-12-10 Completed [facility] Vaccine Vaccine 11:50:00 - [facility] Moderna COVID-19 Moderna COVID-19 2020-12-10 Completed [facility] Vaccine Vaccine 11:50:00 - [facility] Moderna COVID-19 Moderna COVID-19 2020-12-10 Completed [facility] Vaccine Vaccine 11:50:00 - [facility] Moderna COVID-19 Moderna COVID-19 2020-12-10 Completed [facility] Vaccine Vaccine 11:50:00 - [facility] Moderna COVID-19 Moderna COVID-19 2020-12-10 Completed [facility] Vaccine Vaccine 11:50:00 - [facility] Moderna COVID-19 Moderna COVID-19 2020-12-10 Completed [facility] Vaccine Vaccine 11:50:00 - [facility] Moderna COVID-19 Moderna COVID-19 2020-12-10 Completed [facility] Vaccine Vaccine 11:50:00 - [facility] Moderna COVID-19 Moderna COVID-19 2020-11-08 Completed [facility] Vaccine Vaccine 15:41:00 - [facility] Moderna COVID-19 Moderna COVID-19 2020-11-08 Completed [facility] Vaccine Vaccine 15:41:00 - [facility] Moderna COVID-19 Moderna COVID-19 2020-11-08 Completed [facility] Vaccine Vaccine 15:41:00 - [facility] Moderna COVID-19 Moderna COVID-19 2020-11-08 Completed [facility] Vaccine Vaccine 15:41:00 - [facility] Moderna COVID-19 Moderna COVID-19 2020-11-08 Completed [facility] Vaccine Vaccine 15:41:00 - [facility] Moderna COVID-19 Moderna COVID-19 2020-11-08 Completed [facility] Vaccine Vaccine 15:41:00 - [facility] Moderna COVID-19 Moderna COVID-19 2020-11-08 Completed [facility] Vaccine Vaccine 15:41:00 - [facility] Moderna COVID-19 Moderna COVID-19 2020-11-08 Completed [facility] Vaccine Vaccine 15:41:00 - [facility] Moderna COVID-19 Moderna COVID-19 2020-11-08 Completed [facility] Vaccine Vaccine 15:41:00 - [facility] Moderna COVID-19 Moderna COVID-19 2020-11-08 Completed [facility] Vaccine Vaccine 15:41:00 - [facility] Moderna COVID-19 Moderna COVID-19 2020-11-08 Completed [facility] Vaccine Vaccine 15:41:00 - [facility] Moderna COVID-19 Moderna COVID-19 2020-11-08 Completed [facility] Vaccine Vaccine 15:41:00 - [facility] Moderna COVID-19 Moderna COVID-19 2020-11-08 Completed [facility] Vaccine Vaccine 15:41:00 - [facility] Moderna COVID-19 Moderna COVID-19 2020-11-08 Completed [facility] Vaccine Vaccine 15:41:00 - [facility] Moderna COVID-19 Moderna COVID-19 2020-11-08 Completed [facility] Vaccine Vaccine 15:41:00 - [facility] Moderna COVID-19 Moderna COVID-19 2020-11-08 Completed [facility] Vaccine Vaccine 15:41:00 - [facility] Moderna COVID-19 Moderna COVID-19 2020-11-08 Completed [facility] Vaccine Vaccine 15:41:00 [facility] Hepatitis B (adult) Hepatitis B (adult) 2020-01-06 Completed [facility] 15:24:00 [facility] Hepatitis B (adult) Hepatitis B (adult) 2020-01-06 Completed [facility] 15:24:00 [facility] Hepatitis B (adult) Hepatitis B (adult) 2020-01-06 Completed [facility] 15:24:00 [facility] Hepatitis B (adult) Hepatitis B (adult) 2020-01-06 Completed [facility] 15:24:00 - [facility] Hepatitis B (adult) Hepatitis B (adult) 2020-01-06 Completed [facility] 15:24:00 [facility] Hepatitis B (adult) Hepatitis B (adult) 2020-01-06 Completed [facility] 15:24:00 [facility] Hepatitis B (adult) Hepatitis B (adult) 2020-01-06 Completed [facility] 15:24:00 [facility] Hepatitis B (adult) Hepatitis B (adult) 2020-01-06 Completed [facility] 15:24:00 - [facility] Hepatitis B (adult) Hepatitis B (adult) 2020-01-06 Completed [facility] 15:24:00 [facility] Hepatitis B (adult) Hepatitis B (adult) 2020-01-06 Completed [facility] 15:24:00 [facility] Hepatitis B (adult) Hepatitis B (adult) 2020-01-06 Completed [facility] 15:24:00 [facility] Hepatitis B (adult) Hepatitis B (adult) 2020-01-06 Completed [facility] 15:24:00 [facility] Hepatitis B (adult) Hepatitis B (adult) 2020-01-06 Completed [facility] 15:24:00 [facility] Hepatitis B (adult) Hepatitis B (adult) 2020-01-06 Completed [facility] 15:24:00 [facility] Hepatitis B (adult) Hepatitis B (adult) 2020-01-06 Completed [facility] 15:24:00 [facility] Hepatitis B (adult) Hepatitis B (adult) 2020-01-06 Completed [facility] 15:24:00 [facility] Hepatitis B (adult) Hepatitis B (adult) 2020-01-06 Completed [facility] 15:24:00 [facility] Hepatitis A (adult) Hepatitis A (adult) 2019-07-27 Completed [facility] 15:24:00 [facility] Hepatitis A (adult) Hepatitis A (adult) 2019-07-27 Completed [facility] 15:24:00 [facility] Hepatitis A (adult) Hepatitis A (adult) 2019-07-27 Completed [facility] 15:24:00 - [facility] Hepatitis A (adult) Hepatitis A (adult) 2019-07-27 Completed [facility] 15:24:00 - [facility] Hepatitis A (adult) Hepatitis A (adult) 2019-07-27 Completed [facility] 15:24:00 [facility] Hepatitis A (adult) Hepatitis A (adult) 2019-07-27 Completed [facility] 15:24:00 [facility] Hepatitis A (adult) Hepatitis A (adult) 2019-07-27 Completed [facility] 15:24:00 [facility] Hepatitis A (adult) Hepatitis A (adult) 2019-07-27 Completed [facility] 15:24:00 [facility] Hepatitis A (adult) Hepatitis A (adult) 2019-07-27 Completed [facility] 15:24:00 [facility] Hepatitis A (adult) Hepatitis A (adult) 2019-07-27 Completed [facility] 15:24:00 [facility] Hepatitis A (adult) Hepatitis A (adult) 2019-07-27 Completed [facility] 15:24:00 [facility] Hepatitis A (adult) Hepatitis A (adult) 2019-07-27 Completed [facility] 15:24:00 [facility] Hepatitis A (adult) Hepatitis A (adult) 2019-07-27 Completed [facility] 15:24:00 [facility] Hepatitis A (adult) Hepatitis A (adult) 2019-07-27 Completed [facility] 15:24:00 [facility] Hepatitis A (adult) Hepatitis A (adult) 2019-07-27 Completed [facility] 15:24:00 [facility] Hepatitis A (adult) Hepatitis A (adult) 2019-07-27 Completed [facility] 15:24:00 [facility] Hepatitis A (adult) Hepatitis A (adult) 2019-07-27 Completed [facility] 15:24:00 [facility] Hepatitis B (adult) Hepatitis B (adult) 2019-07-27 Completed [facility] 15:23:00 [facility] Hepatitis B (adult) Hepatitis B (adult) 2019-07-27 Completed [facility] 15:23:00 [facility] Hepatitis B (adult) Hepatitis B (adult) 2019-07-27 Completed [facility] 15:23:00 [facility] Hepatitis B (adult) Hepatitis B (adult) 2019-07-27 Completed [facility] 15:23:00 [facility] Hepatitis B (adult) Hepatitis B (adult) 2019-07-27 Completed [facility] 15:23:00 [facility] Hepatitis B (adult) Hepatitis B (adult) 2019-07-27 Completed [facility] 15:23:00 [facility] Hepatitis B (adult) Hepatitis B (adult) 2019-07-27 Completed [facility] 15:23:00 [facility] Hepatitis B (adult) Hepatitis B (adult) 2019-07-27 Completed [facility] 15:23:00 [facility] Hepatitis B (adult) Hepatitis B (adult) 2019-07-27 Completed [facility] 15:23:00 [facility] Hepatitis B (adult) Hepatitis B (adult) 2019-07-27 Completed [facility] 15:23:00 [facility] Hepatitis B (adult) Hepatitis B (adult) 2019-07-27 Completed [facility] 15:23:00 [facility] Hepatitis B (adult) Hepatitis B (adult) 2019-07-27 Completed [facility] 15:23:00 [facility] Hepatitis B (adult) Hepatitis B (adult) 2019-07-27 Completed [facility] 15:23:00 [facility] Hepatitis B (adult) Hepatitis B (adult) 2019-07-27 Completed [facility] 15:23:00 [facility] Hepatitis B (adult) Hepatitis B (adult) 2019-07-27 Completed [facility] 15:23:00 [facility] Hepatitis B (adult) Hepatitis B (adult) 2019-07-27 Completed [facility] 15:23:00 [facility] Hepatitis B (adult) Hepatitis B (adult) 2019-07-27 Completed [facility] 15:23:00 [facility] Toradol (Ketorolac) Toradol (Ketorolac) 2018-06-24 Completed [facility] 11:02:00 [facility] Vital Signs Vital Name Observation Time Observation Value Comments Source height 2022-07-21 14:20:00 65 [in_i] [facility] S pirit - [facility] weight 2022-07-21 14:20:00 280 [lb_av] Common S pirit [facility] temperature 2022-07-21 14:20:00 97.3 [degF] Common S pirit [facility] bmi 2022-07-21 14:20:00 46.59 kg/m2 Common S pirit [facility] oximetry 2022-07-21 14:20:00 97 % Common S pirit [facility] respiratory rate 2022-07-21 14:20:00 17 /min Comm on [facility] blood pressure 2022-07-21 14:20:00 134 mm[Hg] Common [facility] - systolic [facility] blood pressure 2022-07-21 14:20:00 80 mm[Hg] Common [facility] - diastolic [facility] height 2022-04-13 11:00:00 65 [in_i] Common S pirit [facility] weight 2022-04-13 11:00:00 270.8 [lb_av] Common [facility] temperature 2022-04-13 11:00:00 97.3 [degF] Common S pirit [facility] bmi 2022-04-13 11:00:00 45.06 kg/m2 [facility] oximetry 2022-04-13 11:00:00 99 % Common S [facility] respiratory rate 2022-04-13 11:00:00 16 /min Comm on [facility] blood pressure 2022-04-13 11:00:00 138 mm[Hg] [facility] - systolic [facility] blood pressure 2022-04-13 11:00:00 78 mm[Hg] [facility] - diastolic [facility] height 2022-01-13 16:20:00 Common S pirit [facility] weight 2022-01-13 16:20:00 262 [lb_av] Common S pirit [facility] temperature 2022-01-13 16:20:00 97.3 [degF] [facility] bmi 2022-01-13 16:20:00 43.59 kg/m2 Common [facility] oximetry 2022-01-13 16:20:00 98 % [facility] respiratory rate 2022-01-13 16:20:00 16 /min Comm on [facility] blood pressure 2022-01-13 16:20:00 128 mm[Hg] Common [facility] - systolic [facility] blood pressure 2022-01-13 16:20:00 80 mm[Hg] Common [facility] - diastolic [facility] height 2021-10-14 16:20:00 65 [in_i] Common [facility] weight 2021-10-14 16:20:00 247 [lb_av] [facility] temperature 2021-10-14 16:20:00 97.5 [degF] [facility] 2021-10-14 16:20:00 41.1 kg/m2 [facility] oximetry 2021-10-14 16:20:00 98 % [facility] respiratory rate 2021-10-14 16:20:00 16 /min Comm on [facility] blood pressure 2021-10-14 16:20:00 130 mm[Hg] Common [facility] - systolic [facility] blood pressure 2021-10-14 16:20:00 84 mm[Hg] Common [facility] - diastolic [facility] height 2021-10-07 10:00:00 65 [in_i] Common [facility] weight 2021-10-07 10:00:00 255 [lb_av] Common [facility] temperature 2021-10-07 10:00:00 99 [degF] [facility] bmi 2021-10-07 10:00:00 42.43 kg/m2 [facility] height 2021-09-02 11:20:00 65 [in_i] [facility] 2021-09-02 11:20:00 255 [lb_av] Common S [facility] temperature 2021-09-02 11:20:00 97.9 [degF] Common S pirit [facility] bmi 2021-09-02 11:20:00 42.43 kg/m2 Common S [facility] oximetry 2021-09-02 11:20:00 98 % Common S [facility] respiratory rate 2021-09-02 11:20:00 16 /min Comm on [facility] blood pressure 2021-09-02 11:20:00 134 mm[Hg] Common [facility] - systolic [facility] blood pressure 2021-09-02 11:20:00 86 mm[Hg] Common [facility] - diastolic [facility] height 2021-07-23 15:00:00 65 [in_i] Common [facility] weight 2021-07-23 15:00:00 261.4 [lb_av] Common [facility] temperature 2021-07-23 15:00:00 96.8 [degF] Common [facility] bmi 2021-07-23 15:00:00 43.49 kg/m2 [facility] oximetry 2021-07-23 15:00:00 99 % Common [facility] respiratory rate 2021-07-23 15:00:00 16 /min Comm on [facility] blood pressure 2021-07-23 15:00:00 130 mm[Hg] [facility] - systolic [facility] blood pressure 2021-07-23 15:00:00 70 mm[Hg] [facility] - diastolic [facility] height 2021-06-09 15:00:00 65 [in_i] Common [facility] weight 2021-06-09 15:00:00 264 [lb_av] Common S pirit [facility] temperature 2021-06-09 15:00:00 98.1 [degF] Common S pirit - [facility] bmi 2021-06-09 15:00:00 43.93 kg/m2 Common S pirit [facility] oximetry 2021-06-09 15:00:00 98 % Common S [facility] respiratory rate 2021-06-09 15:00:00 16 /min Comm on [facility] - [facility] blood pressure 2021-06-09 15:00:00 132 mm[Hg] [facility] - systolic [facility] blood pressure 2021-06-09 15:00:00 86 mm[Hg] Common [facility] - diastolic [facility] Procedures This patient has no known procedures. Plan of Care Planned Activity Planned Date Details Comments Source Future Scheduled 2022-12-27 Screening for [facility] Test 08:21:21 malignant neoplasm of cervix (procedure) [code = 794503736] Future Scheduled 2022-12-27 BREAST CANCER [facility] Test 08:21:21 SCREENING [code = BREAST CANCER SCREENING] Future Scheduled 2022-12-27 Screening for [facility] Test 08:21:21 malignant neoplasm of colon (procedure) [code = 551313469] Future Scheduled 2022-12-27 Screening for [facility] Test 08:21:21 malignant neoplasm of colon (procedure) [code = 230819833] Future Scheduled 2022-12-27 [facility]:21:21 (1 of 2) [code = SHINGLES VACCINES (1 of 2)] Future Scheduled 2022-12-27 INFLUENZA [facility]ACCINE [facility] 08:21:21 [code = INFLUENZA VACCINE] Future Scheduled 2022-12-27 Screening for [facility] Test 08:21:21 malignant neoplasm of colon (procedure) [code = 049150654] Future Scheduled 2022-12-27 Screening for [facility] Test 08:21:21 malignant neoplasm of colon (procedure) [code = 375579773] Future Scheduled 2022-12-27 Screening for [facility] Test 08:21:21 malignant neoplasm of colon (procedure) [code = 917614423] Future Scheduled 2022-12-27 COVID-[address] [facility] Test 08:21:21 (#1) [code = COVID-19 VACCINE (#1)] Encounters Start End Encounter Admission Attending Care Care Encounter Source Date/Time Date/Time Type Type Clinicians Facility Department ID 2022-04-10 [place] ST[facility] [id number] Common 09:14:00 [facility] 2021-10-10 [place] [place] STLMLC [id number] Common 09:39:01 [facility] 2021-08-06 [place] [place], STLMLC STLMLC [id number] Common 14:36:35 [facility] 2021-08-06 [place] [place], STLMLC STLMLC [id number] Common 14:33:35 [facility] 2021-08-06 [place], STLMLC STLMLC [id number] Common 13:52:31 Codie [id number] [facility] 2021-08-06 [place], STLMLC STLMLC [id number] Common 13:51:02 Codie [id number] [facility] 2021-08-06 [place], STLMLC STLMLC [id number] Common 13:18:29 Codie [id number] [facility] 2021-08-06 [place], STLMLC STLMLC [id number] Common 12:43:19 Codie 50352 [facility] 2021-08-06 [place] [place], STLMLC STLMLC [id number] Common 12:14:13 Codie [id number] [facility] 2021-08-06 [place] [place], STLMLC STLMLC [id number] Common 11:50:35 Codie 40614 [facility] 2021-08-06 [place], STLMLC STLMLC [id number] Common 11:17:46 Codie [id number] [facility] 2021-08-06 [place] [place], STLMLC STLMLC [id number] Common 11:00:46 Codie [id number] [facility] 2022-07-21 2022-07-21 OFFICE STLMLC STLMLC [id number] Co mmon 00:00:00 00:00:00 VISIT EST Spir it PT LEVEL 3 - [facility] 2022-04-13 2022-04-13 OFFICE STLMLC STLMLC [id number] Co mmon 00:00:00 00:00:00 VISIT [facility] ESTAB PT - CHI LEVEL 4 [facility] 2022-01-14 2022-01-14 (TEL) STLMLC STLMLC [id number] Co mmon 00:00:00 00:00:00 [facility] 2022-01-13 2022-01-13 OFFICE STLMLC STLMLC [id number] Co mmon 00:00:00 00:00:00 VISIT [facility] PT - CHI [address] 2021-12-09 2021-12-09 (TEL) STLMLC STLMLC [id number] Co mmon 00:00:00 00:00:00 [facility] 2021-11-25 2021-11-25 (TEL) STLMLC STLMLC [id number] Co mmon 00:00:00 00:00:00 [facility] 2021-10-14 2021-10-14 OFFICE STLMLC STLMLC [id number] Co mmon 00:00:00 00:00:00 VISIT EST Spir it PT LEVEL 3 [facility] 2021-10-07 2021-10-07 OFFICE STLMLC STLMLC [id number] Co mmon 00:00:00 00:00:00 VISIT EST Spir it PT LEVEL 3 [facility] 2021-10-06 2021-10-06 (TEL) STLMLC STLMLC [id number] Co mmon 00:00:00 00:00:00 [facility] 2021-09-02 2021-09-02 OFFICE STLMLC STLMLC [id number] Co mmon 00:00:00 00:00:00 VISIT EST Spir it PT LEVEL 3 [facility] 2021-07-23 2021-07-23 OFFICE STLMLC STLMLC [id number] Co mmon 00:00:00 00:00:00 VISIT EST Spir it PT LEVEL 3 [facility] 2021-07-23 2021-07-23 (TEL) STLMLC STLMLC [id number] Co mmon 00:00:00 00:00:00 [facility] 2021-06-09 2021-06-09 OFFICE STLMLC STLMLC [id number] Co mmon 00:00:00 00:00:00 VISIT EST Spir it PT LEVEL 3 [facility] 2021-06-09 2021-06-09 (TEL) STLMLC STLMLC [id number] Co mmon 00:00:00 00:00:00 [facility] 2021-04-20 2021-04-20 (TEL) STLMLC STLMLC [id number] Co mmon 00:00:00 00:00:00 [facility] 2021-04-02 2021-04-02 Outpatient STLMLC STLMLC [id number] Common 00:00:00 00:00:00 [facility] 2021-01-01 2021-01-01 (TEL) STLMLC STLMLC [id number] Co mmon 00:00:00 00:00:00 [facility] 2020-12-31 2020-12-31 Outpatient STLMLC STLMLC [id number] Common 00:00:00 00:00:00 [facility] 2020-10-22 2020-10-22 Outpatient STLMLC STLMLC [id number] Common 00:00:00 00:00:00 [facility] 2020-09-30 2020-09-30 Outpatient STLMLC STLMLC [id number] Common 00:00:00 00:00:00 [facility] 2020-07-17 2020-07-17 Outpatient STLMLC STLMLC [id number] Common 00:00:00 00:00:00 [facility] 2020-06-26 2020-06-26 Outpatient STLMLC STLMLC [id number] Common 00:00:00 00:00:00 [facility] 2020-03-29 2020-03-29 [facility] [id number] Common 16:52:00 16:52:00 t [facility] [address] [facility] 2020-03-29 2020-03-29 [facility] [id number] Common 10:40:00 10:40:[address] [facility] 2020-02-26 2020-02-26 [facility] [id number] Common 16:20:00 16:20:00 t [facility] [address] [facility] 2020-01-24 2020-01-24 [facility] [id number] Common 14:40:00 14:40:00 t [facility] [address] [facility] 2019-12-28 2019-12-28 [facility] [id number] Common 11:40:00 11:40:00 t [facility] [address] [facility] 2019-09-15 2019-09-15 Outpatient JIMBO, [facility] [id number] [place] 00:00:00 00:00:00 ANTONIO [facility] 2019-07-26 2019-07-26 [facility] [id number] Common 10:40:00 10:40:00 t [facility] [address] [facility] 2018-09-22 2018-09-22 [facility] [id number] Common 10:55:00 10:55:00 t [facility] [address] [facility] 2018-07-27 2018-07-27 [facility] [id number] Common 13:00:00 13:00:[address] [facility] 2018-07-06 2018-07-06 [facility] [id number] Common 16:59:00 16:59:[address] [facility] 2018-06-24 2018-06-24 [facility] [id number] Common 10:30:00 10:30:00 t [facility] [address] [facility] 2018-02-10 2018-02-10 [facility] [id number] Common 14:13:00 14:13:00 t [facility] [address] [facility] 2018-01-31 2018-01-31 [facility] [id number] Common 10:59:00 10:59:00 t [facility] [address] [facility] 2018-01-21 2018-01-21 [facility] [id number] Common 08:30:00 08:30:00 t [facility] [address] [facility] 2017-11-04 2017-11-04 Outpatient [facility] [id number] Common 13:00:00 13:00:00 t [facility] [address] [facility] Results Test Description Test Time Test Comments Results Result Comments Source HEMOGLOBIN A1C 2021-07-23 00:00:00 Test Item Value Reference Range Interpretation Comme nts A1C (test code = 4548-4) 6.3
[2023-01-09 17:41] LABS: Absolute Lymphocytes (CBC) 3.5 K/uL (0.7-4.9); Hematocrit 44.7 % (36.0-45.0); Lymphocytes % 35.6 % (15.3-44.8); MCV 88.8 fL (80-100); MPV 8.7 fL (7.6-11.3); RBC Red Blood Cell Count 5.04 M/uL (3.86-4.86)
[2023-01-09] MEDS ORDERED: KETOROLAC 30 MG/ML INJ ONE (17:44)
[2023-01-09] MEDS ORDERED: ONDANSETRON 4 MG/2 ML VIAL ONE (17:45)
[2023-01-09] MEDS ORDERED: FAMOTIDINE 20 MG/2 ML VIAL IV ONE (17:45)
--- NOTE | 2023-01-09 17:57 | RAD REPORT ---
EXAM DESCRIPTION: US - Abdomen Exam Limited - 01/09/2023 5:41 pm CLINICAL HISTORY: ABD PAIN COMPARISON: Renal Ultrasound-Complete dated 08/10/2019 TECHNIQUE: Sonographic grayscale and color flow images of the right upper quadrant were obtained. FINDINGS: The gallbladder demonstrates multiple shadowing gallstones. No pericholecystic fluid or ga llbladder wall thickening. The common bile duct is normal measuring 5 mm. The liver demonstrates no findings of intrahepatic biliary dilatation. IMPRESSION: Cholelithiasis. No evidence of acute cholecystitis.
[2023-01-09 17:59] LABS: Albumin 4.1 g/dL (3.4-5.0); Bilirubin Total 0.5 mg/dL (0.2-1.0); Potassium 3.9 mEq/L (3.5-5.1); Protein, Total 8.3 g/dL (6.4-8.2); Troponin High Sensitivity 13.1 pg/mL (<58.9)
[2023-01-09] MEDS ORDERED: PIPERACIL/TAZO 3.375 GM VIAL IV ONE (18:44)
[2023-01-09] MEDS ORDERED: NA CHLORIDE 0.9% 100 ML ONE (18:45)
--- NOTE | 2023-01-09 18:46 | EDPHYS ---
Physician Documentation [facility] Name: Page Celestin Age: 52 yrs Sex: Female : 1970 Arrival Date: 01/09/2023 Time: 17:03 Bed 4 Private MD: ED Physician Kenrick Bacon HPI: 01/09 17:16 This 52 yrs old Female presents to ER via Ambulatory with complaints of Flank Pain, jmm Vomiting. 17:16 The patient complains of pain in the right flank. Onset: The symptoms/episode jmm began/occurred acutely, just prior to arrival. Modifying factors: The symptoms are alleviated by nothing. the symptoms are aggravated by nothing. Associated signs and symptoms: Pertinent negatives: fever. Is a 52-year-old female with history diabetes mellitus and hypertension the presents emerged department with complaints of intermittent abdominal pain beginning over the past few months. States this morning pain intensified with nausea and vomiting. Denies diarrhea. Denies fever.. Historical: - Allergies: 17:14 No Known Allergies; ss - Home Meds: 17:14 lisinopril 40 mg oral tablet 1 tab daily [Active]; Januvia 100 mg oral tablet daily ss [Active]; - PMHx: 17:14 Diabetes - NIDDM; Hypertension; ss - PSHx: 17:14 hysterectomy; ss - Immunization history:: Client reports receiving the 2nd dose of the Covid vaccine. - Social history:: Smoking status: Patient denies any tobacco usage or history of. ROS: 17:16 Constitutional: Negative for fever, chills, and weight loss, Cardiovascular: Negative jmm for chest pain, palpitations, and edema, Respiratory: Negative for shortness of breath, cough, wheezing, and pleuritic chest pain. 17:16 Abdomen/GI: Positive for abdominal pain. 17:16 All other systems are negative. Exam: 17:16 Constitutional: This is a well developed, well nourished patient who is awake, alert, jmm and in no acute distress. Head/Face: atraumatic. Eyes: EOMI, no conjunctival erythema appreciated ENT: Moist Mucus Membranes Neck: Trachea midline, Supple Chest/axilla: Normal chest wall appearance and motion. Cardiovascular: Regular rate and rhythm. No edema appreciated Respiratory: Normal respirations, no respiratory distress appreciated 17:16 Back: Normal ROM Skin: General appearance color normal MS/ Extremity: Moves all extremities, no obvious deformities appreciated, no edema noted to the lower extremities Neuro: Awake and alert Psych: Behavior is normal, Mood is normal, Patient is cooperative and pleasant 17:16 Abdomen/GI: Inspection: abdomen appears normal, Bowel sounds: normal, Palpation: soft, mild abdominal tenderness, in the right upper quadrant. Vital Signs: 17:13 BP 124 / 89; Pulse 99; Resp 16; Temp 98(O); Pulse Ox 100% on R/A; Weight 127.01 kg; ss Height 5 ft. 5 in. ; Pain 8/10; 18:32 BP 121 / 74; Pulse 83; Resp 18; Pulse Ox 96% on R/A; ko1 20:29 BP 121 / 73; Pulse 75; Resp 19; Pulse Ox 97% on R/A; kd3 20:55 BP 109 / 63; Pulse 77; Resp 18; Pulse Ox 100% on R/A; kd3 17:13 Body Mass Index 46.59 (127.01 kg, 165.1 cm) ss 17:13 Pain Scale: Adult ss MDM: 17:16 Patient medically screened. [facility] 18:54 Differential diagnosis: pyelonephritis, pancreatitis, Cholecystitis. Data reviewed: [facility] vital signs, nurses notes. Counseling: I had a detailed discussion with the patient and/or guardian regarding: the historical points, exam findings, and any diagnostic results supporting the discharge/admit diagnosis, lab results, radiology results, the need for outpatient follow up, the need for further work-up and treatment in the hospital. 01/09 17:21 Order name: CBC with Diff; Complete Time: 17:46 [facility] 01/09 17:21 Order name: CMP; Complete Time: 18:02 [facility] 01/09 17:21 Order name: Lipase; Complete Time: 18:02 [facility] 01/09 17:21 Order name: Test, Urine; Complete Time: 08:59 [facility] 01/09 17:21 Order name: Urinalysis w/ reflexes; Complete Time: 08:59 [facility] 01/09 17:21 Order name: Troponin High Sensitivity; Complete Time: 18:02 [facility] 01/09 20:24 Order name: Basic Metabolic Panel [facility] 01/09 20:24 Order name: Basic Metabolic Panel; Complete Time: 08:59 [facility] 01/09 20:24 Order name: CBC with Automated Diff [facility] 01/09 20:24 Order name: CBC with Automated Diff; Complete Time: 08:59 [facility] 01/09 20:24 Order name: Lipase [facility] 01/09 20:24 Order name: Lipase; Complete Time: 08:59 [facility] 01/09 20:24 Order name: Liver (Hepatic) Function [facility] 01/09 20:24 Order name: Liver (Hepatic) Function; Complete Time: 08:59 [facility] 01/09 17:21 Order name: Abdomen Limited US; Complete Time: 18:02 [facility] 01/09 20:24 Order name: CONS Physician Consult [facility] 01/09 20:24 Order name: NPO [facility] 01/09 17:21 Order name: IV Saline Lock; Complete Time: 17:34 [facility] 01/09 17:21 Order name: Labs collected and sent; Complete Time: 17:34 [facility] Administered Medications: 17:39 Drug: NS 0.9% IV 1000 ml Route: IV; Rate: 1 bolus; Site: left antecubital; ko1 20:21 Follow up: IV Status: Completed infusion kd3 17:39 Drug: Ondansetron IVP 4 mg Route: IVP; Site: left antecubital; ko1 20:21 Follow up: Response: No adverse reaction; Nausea is decreased kd3 17:41 Drug: TORadol - Ketorolac IVP 15 mg Route: IVP; Site: left antecubital; ko1 20:21 Follow up: Response: No adverse reaction; Pain is decreased kd3 17:43 Drug: Famotidine IVP 20 mg Route: IVP; Site: left antecubital; ko1 20:21 Follow up: Response: No adverse reaction kd3 18:39 Drug: Piperacillin-Tazobactam IVPB 3.375 grams Route: IVPB; Infused Over: 60 mins; ko1 Site: left antecubital; 20:21 Follow up: IV Status: Completed infusion; IV Intake: 100ml kd3 Disposition Summary: 01/09/23 18:45 Hospitalization Ordered Hospitalization Status: Observation [facility] Provider: Babs Eaton Location: Telemetry/MedSurg (observation) jm Condition: Stable jmm Problem: new jmm Symptoms: are unchanged jmm Bed/Room Type: Standard [facility] Room Assignment: [facility](01/09/23 20:41) Diagnosis - Other cholelithiasis without obstruction [facility] Forms: - Medication Reconciliation Form [facility] - SBAR form [facility] Addendum: 01/13/2023 08:59 Co-signature as Attending Physician, Kenrick Bacon MD I reviewed the patient's care r n provided by the Advanced Practice Provider and agree with the diagnosis and treatment plan. Signatures: Dispatcher [employer] EDIA Shani Brar RN RN mw Mickail, Joel, PA PA Kenrick Rivera MD MD rn Blanchard, Shelby, RN RN ss Doucette, Kyli, RN RN kd3 Sylvia Perdomo RN RN ko1 Corrections: (The following items were deleted from the chart) 01/09 20:41 18:45 charlotte velázquez
--- NOTE | 2023-01-09 18:46 | ER ---
Nurse's Notes [facility] Name: Page Celestin Age: 52 yrs Sex: Female : 1970 Arrival Date: 01/09/2023 Time: 17:03 Bed 4 Private MD: Diagnosis: Other cholelithiasis without obstruction Presentation: 01/09 17:13 Chief complaint: Patient states: RUQ pain x months. Pt reports she woke up at 0300 this morning and felt like she was having a heart attack. C/o chest pain that went to her back and now is belching. Coronavirus screen: Client denies travel out of the [place] in the last 14 days. Ebola Screen: Patient denies exposure to infectious person. Patient denies travel to an Ebola-affected area in the 21 days before illness onset. Initial Sepsis Screen: Does the patient meet any 2 criteria? No. Patient's initial sepsis screen is negative. Does the patient have a suspected source of infection? No. Patient's initial sepsis screen is negative. Risk Assessment: Do you want to hurt yourself or someone else? Patient reports no desire to harm self or others. Onset of symptoms is unknown. 17:13 Method Of Arrival: Ambulatory ss 17:13 Acuity: KYRA 3 ss Triage Assessment: 20:20 General: Appears in no apparent distress. Behavior is calm, cooperative. GI: Reports kd3 lower abdominal pain. Historical: - Allergies: 17:14 No Known Allergies; ss - Home Meds: 17:14 lisinopril 40 mg oral tablet 1 tab daily [Active]; Januvia 100 mg oral tablet daily ss [Active]; - PMHx: 17:14 Diabetes - NIDDM; Hypertension; ss - PSHx: 17:14 hysterectomy; ss - Immunization history:: Client reports receiving the 2nd dose of the Covid vaccine. - Social history:: Smoking status: Patient denies any tobacco usage or history of. Screenin:30 [facility] ED Fall Risk Assessment (Adult) History of falling in the last 3 months, ko1 including since admission No falls in past 3 months (0 pts) Confusion or Disorientation No (0 pts) Intoxicated or Sedated No (0 pts) Impaired Gait No (0 pts) Mobility Assist Device Used No (0 pt) Altered Elimination No (0 pt) Score/Fall Risk Level 0 - 2 = Low Risk Oriented to surroundings, Maintained a safe environment, Educated pt \T\ family on fall prevention, incl call for assistance when getting out of bed, Assessed \T\ reinforced patient's understanding of fall precautions, Provided non-skid footwear, Hourly rounding (assess needs \T\ fall precautionary measures) done, Used ambulatory aids as needed (educated on \T\ assisted with), Used gait belt as appropriate. Abuse screen: Denies threats or abuse. Denies injuries from another. Nutritional screening: No deficits noted. Tuberculosis screening: No symptoms or risk factors identified. Assessment: 17:30 General: Appears in no apparent distress. comfortable, Behavior is calm, cooperative, ko1 appropriate for age. Pain:. 17:30 Pain: Complains of pain in right upper quadrant. Neuro: No deficits noted. ko1 Cardiovascular: No deficits noted. Respiratory: No deficits noted. GI: Abdomen is obese. : No deficits noted. EENT: No deficits noted. Derm: No deficits noted. Musculoskeletal: No deficits noted. 20:20 General: Appears in no apparent distress. Behavior is calm, cooperative. Neuro: Level kd3 of Consciousness is awake, alert, obeys commands, Oriented to person, place, time, situation. Cardiovascular: Patient's skin is warm and dry. Respiratory: Airway is patent Trachea midline Respiratory effort is even, unlabored, Respiratory pattern is regular, symmetrical. Vital Signs: 17:13 BP 124 / 89; Pulse 99; Resp 16; Temp 98(O); Pulse Ox 100% on R/A; Weight 127.01 kg; ss Height 5 ft. 5 in. ; Pain 8/10; 18:32 BP 121 / 74; Pulse 83; Resp 18; Pulse Ox 96% on R/A; ko1 20:29 BP 121 / 73; Pulse 75; Resp 19; Pulse Ox 97% on R/A; kd3 20:55 BP 109 / 63; Pulse 77; Resp 18; Pulse Ox 100% on R/A; kd3 17:13 Body Mass Index 46.59 (127.01 kg, 165.1 cm) 17:13 Pain Scale: Adult ss ED Course: 17:04 Patient arrived in ED. rg4 17:07 Margarito Lehman PA is PHCP. [place] 17:07 Kenrick Bacon MD is Attending Physician. [facility] 17:14 Triage completed. ss 17:14 Arm band placed on right wrist. ss 17:16 Sylvia Perdomo, RN is Primary Nurse. ko1 17:30 Patient has correct armband on for positive identification. Placed in gown. Bed in low ko1 position. Call light in reach. Side rails up X 1. Pulse ox on. NIBP on. Door closed. Noise minimized. Lights dimmed. Warm blanket given. 17:30 Inserted saline lock: 20 gauge in left antecubital area, using aseptic technique. Blood ko1 collected. 17:34 CBC with Diff Sent. ko1 17:34 CMP Sent. ko1 17:34 Lipase Sent. ko1 17:34 Troponin High Sensitivity Sent. ko1 17:43 Abdomen Limited US In Process Unspecified. EDMS 18:45 Babs Eaton is Hospitalizing Provider. m 20:29 Test, Urine Sent. kd3 20:29 Urinalysis w/ reflexes Sent. kd3 20:56 No provider procedures requiring assistance completed. Patient admitted, IV remains in kd3 place. Administered Medications: 17:39 Drug: NS 0.9% IV 1000 ml Route: IV; Rate: 1 bolus; Site: left antecubital; ko1 20:21 Follow up: IV Status: Completed infusion kd3 17:39 Drug: Ondansetron IVP 4 mg Route: IVP; Site: left antecubital; ko1 20:21 Follow up: Response: No adverse reaction; Nausea is decreased kd3 17:41 Drug: TORadol - Ketorolac IVP 15 mg Route: IVP; Site: left antecubital; ko1 20:21 Follow up: Response: No adverse reaction; Pain is decreased kd3 17:43 Drug: Famotidine IVP 20 mg Route: IVP; Site: left antecubital; ko1 20:21 Follow up: Response: No adverse reaction kd3 18:39 Drug: Piperacillin-Tazobactam IVPB 3.375 grams Route: IVPB; Infused Over: 60 mins; ko1 Site: left antecubital; 20:21 Follow up: IV Status: Completed infusion; IV Intake: 100ml kd3 Medication: 17:30 VIS not applicable for this client. ko1 Intake: 20:21 IV: 100ml; Total: 100ml. kd3 Outcome: 18:45 Decision to Hospitalize by Provider. [place] 20:56 Admitted to Med/surg kd3 20:56 Condition: stable 20:56 Discharge instructions given to patient, Instructed on the need for admit, Demonstrated understanding of instructions. 20:59 Patient left the ED. kd3 Signatures: Dispatcher [employer] EDMS Margarito Lehman PA PA jmm Blanchard, Shelby, RN RN ss Romi Ayon 4 Faith Wilson RN RN kd3 Sylvia Perdomo RN RN ko1
[2023-01-09] MEDS ORDERED: ACETAMINOPHEN 500 MG TAB PO PRN (20:19)
[2023-01-09] MEDS ORDERED: MORPHINE 4 MG/ML SYR IV PRN (20:19)
--- NOTE | 2023-01-09 20:27 | P.HP ---
Certification for Inpatient Patient admitted to: Observation With expected LOS: <2 Midnights Patient will require the following post-hospital care: None Practitioner: I am a practitioner with admitting privileges, knowledge of patient current condition, hospital course, and medical plan of care. Services: Services provided to patient in accordance with Admission requirements found in Title 42 Section 412.3 of the Code of Federal Regulations Patient History Date of Service: 01/10/23 Reason for admission: Abdominal pain History of Present Illness: 52 year old female with past medical history of HTN, DM type 2 presents to the emergency room for abdominal pain. She reports she was awaken in her sleep with RUQ dull, achy abdominal pain that radiated to her shoulder, with pain of 8/10. She report associated belching, gas pain, nausea, vomiting x2 this am. She reports symptoms wose with po intake. She reported a similar episode 1 mo ago after eating greasy food. She reports pain, nausea better with pain, nausea medications in the ER. She denies use of alcohol, fever, chills, chest pain, shortness of breath, cough. Allergies No Known Allergies Allergy (Verified 01/09/23 22:49) Home Medications: Lisinopril [Zestril] 40 mg PO DAILY 01/09/23 Sitagliptin Phosphate [Januvia] 100 mg PO DAILY 01/09/23 - Past Medical/Surgical History Has patient received pneumonia vaccine in the past: No Diabetic: Yes -: DM type 2 -: HTN -: Hysterectomy - Family History Mother -: Heart disease Father -: Heart disease - Social History Counseled patient to stop smoking for: less than 10 minutes Alcohol use: No CD- Drugs: No Place of Residence: Home Review of Systems 10-point ROS is otherwise unremarkable General: As per HPI Physical Examination - Physical Exam General: Alert, In no apparent distress, Oriented x3, Obese HEENT: Normocephalic, Mucous membr. moist/pink, Sclerae nonicteric Neck: Supple, JVD not distended Respiratory: Clear to auscultation bilaterally Cardiovascular: No edema, Regular rate/rhythm, Normal S1 S2 Gastrointestinal: Normal bowel sounds, Non-distended, Other (RUQ tenderness) Integumentary: No breakdown, No tenderness/swelling Neurological: Normal speech, Normal affect - Studies Laboratory Data (last 24 hrs) 01/09/23 17:30: Sodium 139, Potassium 3.9, BUN 14, Creatinine 1.11 H, Glucose 122 H, Total Bilirubin 0.5, AST 32, ALT 49, Alkaline Phosphatase 63, Lipase 31 01/09/23 17:30: WBC 9.80, Hgb 14.5, Hct 44.7, Plt Count 362 Assessment and Plan - Plan Assessment/Plan cholelithiasis without obstruction HTN-controlled DM type 2 ukn control Obesity Plan cholelithiasis without obstruction surg consult, prn analgesics, anti emetics, NPO P MN HTN resume approp home meds VS Q4 hour per unit routine DM AC ACHS, SSI Obesity DM diet when fredis PO DVT SCD- surg eval in am Full code - Advance Directives Does patient have a Living Will: No Does patient have a Durable POA for Healthcare: No - Code Status/Comfort Care Code Status: Full Code Physician Review: Patient Assessed, Agree with Above Assessment and Plan Critical Care: No Time Spent Managing Pts Care (In Minutes): 50
[2023-01-09] MEDS ORDERED: ACETAMINOPHEN 325 MG TABLET PO PRN (20:33)
[2023-01-09 20:40] LABS: Specific Gravity > 1.030 (1.005-1.030)
[2023-01-09 20:47] LABS: Calcium Oxalate Crystals- Ur Moderate /HPF (None Seen); Specific Gravity 1.018 (1.005-1.030); Urine Bacteria None Seen /HPF (<20); Urine Bilirubin NEGATIVE (Negative); Urine Blood Negative (Negative); Urine Clarity Extremely Turbid (Clear); Urine Color Light-Yellow (Yellow); Urine Glucose NEGATIVE (Negative); Urine Mucus Slight /HPF (None Seen); Urine Protein NEGATIVE (Negative); Urine Urobilinogen Normal (Normal)
[2023-01-09] MEDS: NA CHLORIDE 0.9% 1,000 ML IV SCH (21:21)
[2023-01-09 21:57] VITALS: BMI 42.7
[2023-01-10] MEDS: PIPER TAZO 3.375 GM in NA CHLORIDE 0.9% 100 ML IV SCH ×3 (00:56→16:48)
[2023-01-10 05:30] LABS: Absolute Lymphocytes (CBC) 2.9 K/uL (0.7-4.9); Hematocrit 39.1 % (36.0-45.0); Lymphocytes % 36.7 % (15.3-44.8); MCV 90.1 fL (80-100); MPV 8.6 fL (7.6-11.3); RBC Red Blood Cell Count 4.34 M/uL (3.86-4.86)
[2023-01-10 05:51] LABS: Albumin 3.1 g/dL (3.4-5.0); Bilirubin Direct 0.1 mg/dL (0-0.2); Bilirubin Indirect, Calculated 0.4 mg/dL (0.2-0.8); Bilirubin Total 0.5 mg/dL (0.2-1.0); Potassium 3.8 mEq/L (3.5-5.1); Protein, Total 6.3 g/dL (6.4-8.2)
[2023-01-10] MEDS: NA CHLORIDE 0.9% 1,000 ML IV SCH ×2 (06:37→16:48)
[2023-01-10] MEDS: ONDANSETRON 4 MG/2 ML VIAL IV PRN (09:24)
[2023-01-10] MEDS ORDERED: BUPIVACAINE 0.25% PF 30 ML VIAL ONE (10:46)
[2023-01-10] MEDS ORDERED: SUCCINYLCHOLINE 20 MG/ML (10 ML) IV ONE (10:46)
[2023-01-10] MEDS ORDERED: ROCURONIUM 50 MG/5 ML VIAL IV ONE (10:51)
[2023-01-10] MEDS ORDERED: FENTANYL CITR 100 MCG/2 ML ONE (10:51)
[2023-01-10] MEDS ORDERED: MIDAZOLAM HCL 2 MG/2 ML INJ ONE (10:51)
[2023-01-10] MEDS ORDERED: propofoL 200 MG/20 ML VIAL IV ONE (10:51)
[2023-01-10] MEDS: NA CHLORIDE 0.9% 1,000 ML ONE (11:27)
[2023-01-10] MEDS ORDERED: NEOSTIGMINE 1 MG/ML -10 ML VIAL ONE (11:55)
[2023-01-10] MEDS ORDERED: GLYCOPYRROLATE 0.2 MG/ML SYR ONE (11:55)
--- NOTE | 2023-01-10 11:56 | P.OP ---
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
[2023-01-10] MEDS ORDERED: dexAMETHasone 10 MG/ML VIAL ONE (12:00)
[2023-01-10] MEDS ORDERED: SUGAMMADEX SODIUM 200 MG/2 ML VIAL IV ONE (12:09)
[2023-01-10] MEDS ORDERED: HYDROCODONE/APAP 5/325 MG TAB PO PRN (12:11)
[2023-01-10] MEDS ORDERED: ONDANSETRON 4 MG/2 ML VIAL ONE ×2 (12:13→12:31)
[2023-01-10] MEDS: HYDROMORPHONE HCL 1 MG/ML INJ ONE ×2 (12:23→12:29)
[2023-01-10 12:37] VITALS: O2SAT 96
--- NOTE | 2023-01-10 13:53 | OP ---
Date of Procedure: 01/10/2023 Surgeon: Adithya Ferrell MD, Preoperative Diagnosis: Symptomatic cholelithiasis. Postoperative Diagnosis: Symptomatic cholelithiasis. Procedure Performed: Laparoscopic cholecystectomy with ICG that is Indocyanine green cholangiography . Anesthesia: General endotracheal plus local with 0.25% Marcaine. Estimated Blood Loss: Less than 5 cc. Specimen: Gallbladder. Findings: Cholecystitis. Complications: None. Disposition: The patient was transferred to the recovery room in good condition. Procedure In Detail: After informed consent was obtained, the patient was brought to the operating r oom, prepped and draped in the usual sterile fashion after adequate anesthesia achieved. I anestheti zed the supraumbilical area down through subcutaneous tissues with 0.25% Marcaine, sharply incised. A 5 mm trocar was placed into the abdomen under direct visualization without evidence of complication . Insufflation was obtained to 15 mmHg at this time. There was no injury to vital structures upon e ntry into the abdomen. I inspected the abdomen at this point and found there was some scar tissue in the anterior abdominal wall in the infraumbilical position, but not related to the trocar introducti on site likely from a previous hysterectomy. It looked as if it was omentum and attached to the ante rior abdominal wall. I then placed 3 additional trocars, 1 in the epigastrium, 1 in the right upper quadrant, 1 in the right mid abdomen. All 5 mm trocars were placed under direct visualization withou t evidence of complication. The umbilical trocar was then upsized to a 12 mm under direct visualizat ion evidence of complication. I grasped the gallbladder, placed toward the patient's right shoulder. The patient was placed in a gallbladder position head up right-side up position. The ratcheted gra sper was used to help dissect down to the Alberto pouch of the gallbladder. The gallbladder had sig nificant adipose tissue on the anterior surface and inflammatory changes. I used electrocautery to d issect down through the adipose tissue and expose the wall of the gallbladder, which was then dissect ed down to the Alberto pouch of the gallbladder exposing 2 structures identified as the cystic duct and cystic artery. These 2 structures were skeletonized. ICG cholangiography was confirmed at this point to help confirm the anatomy. At this point, ICG cholangiography was discontinued. I obtained a critical view of safety after these structures were completely skeletonized, ensured the anatomy wa s as described. I placed double titanium clips on the proximal side and singly on the distal side of both cystic duct cystic artery. Endo Shakila were then used to ligate the 2 structures without evide nce of complication. I then removed the gallbladder from the hepatic fossa using electrocautery and placed the gallbladder into the EndoCatch bag and removed the umbilical trocar and sent off for patho logic examination. At this point, I then irrigated the abdomen copiously. Minimal fulguration was r equired to the mid to lateral aspect of the gallbladder bed near the midportion of the gallbladder. Minimal fulguration was required to achieve hemostasis of minimal amount of oozing. No significant i ntraoperative blood loss was appreciated. The area was copiously irrigated again. Hemostasis was ac hieved at this point. There was no spillage of bile at the end of the procedure. Clips were found t o be in good anatomic position. The remaining effluent was suctioned out. The patient was positione d back in neutral position. The umbilical trocar site was then closed using a Tapan-Kylah suture passer with 0 Vicryl in an interrupted fashion with good approximation of tissues. The abdomen was completely desufflated under direct visualization without evidence of complication. All skin incisio ns were then copiously irrigated and closed with a 4-0 Monocryl in a running fashion. Dermabond plac ed over top. The patient tolerated the procedure well without evidence of complication and transferred to PACU in good condition. All counts were correct at the end of the case. SMITA/LING Voice ID: [id number] Report ID: [id number]
--- NOTE | 2023-01-10 14:14 | CON ---
Date of Consultation: 01/10/2023 Brief History Of Present Illness: The patient is a 52-year-old woman, who comes in with abdominal pa in, beginning in the epigastrium with radiation in the right upper quadrant and to the right side of the abdomen laterally, which began approximately 3 a.m. the night before. She states she has had mul tiple episodes before like this in the past, but never to this level of severity. It is associated w ith eating greasy meal. She noted that the pain got significantly worse with sharp, stabbing in reinaldo acter. She had multiple episodes of nausea, vomiting. She has never had any infections, she is awar e of. No sick contacts. No recent travel. No new food exposures. That was associated with increas ed belching as well. She feels somewhat better this morning, but continues to have significant pain and tenderness in the right upper quadrant. Past Medical History: Significant for diabetes, hypertension. Past Surgical History: Hysterectomy. Allergies: NO KNOWN DRUG ALLERGIES. Home Medications: Include Zestril and . Family History: Significant for heart disease in her mother and father. Social History: She denies smoking, alcohol, recreational drug use. Review of Systems: Ten-point review of systems other than HPI, denies. Physical Examination: General: At the time of my examination; she is awake, alert, oriented. She is obese generally. Psychiatric: Appropriate, conversive. Neck: Supple without JVD. Chest: Expansion and excursion. Cardiovascular: Regular rate and rhythm. Pulmonary: Clear to auscultation bilaterally. Abdomen: Soft with positive right upper quadrant tenderness to palpation. Positive Harrison sign. Mi ld voluntary guarding in the right upper quadrant. Extremities: No clubbing, cyanosis, or edema. Skin: Warm and dry. Laboratory Data: Revealed a white blood cell count of 7.9, hemoglobin of 7.9, hematocrit 39.1, plate let count is 284. Her sodium 142, potassium 3.8, chloride 112, carbon dioxide 27, BUN 17, creatinine 1.0, glucose is 116, total bilirubin 0.5 on admission and remains 0.5, direct component 0.1, AST is 26, ALT 39, alkaline phosphatase is 48. Lipase is 31 on admission, now 26. Her UA was turbid, 250 l eukocyte esterase, 5-10 red blood cells, moderate calcium oxalate crystals, 1+ amorphous crystals, hy birdie casts 5-10. Urine test was negative. She had imaging performed, which included an u ltrasound of the gallbladder, officially read on 01/09/2023 as cholelithiasis. No evidence of acute cholecystitis. The gallbladder demonstrates multiple shadowing gallstones. No pericholecystic fluid or gallbladder wall thickening. The common duct is normal measuring 5 mm. The liver demonstrates n o findings of intrahepatic biliary ductal dilatation. Assessment And Plan: This is a 52-year-old woman, who comes in with abdominal pain, cholelithiasis, possible likely biliary colic attack. 1.IV fluid hydration. 2.Antibiotic coverage. 3.I have explained risks, benefits, and alternatives of laparoscopic cholecystectomy with Indocyanin e green cholangiography including, but not limited to bleeding, infection, damage to surrounding tiss ues, injury to bile ducts, intestines, perioperative complications such as blood clots, strokes, comp lication related anesthesia, need for further operation and procedures. The patient agrees proceed a s indicated. SMITA/LING Voice ID: [id number] Report ID: [id number]
--- NOTE | 2023-01-10 17:37 | P.PN ---
Subjective Date of Service: 01/10/23 Chief Complaint: Abdominal pain Status post lap cholecystectomy. Patient has no new complaint. She is tolerating diet. Physical Examination - Vital Signs Temperature: 97.3 F Blood Pressure: 100/57 Pulse: 58 Respirations: 16 Pulse Ox (%): 96 - Physical Exam General: In no apparent distress, Oriented x3 HEENT: Mucous membr. moist/pink, Sclerae nonicteric Neck: JVD not distended Respiratory: Clear to auscultation bilaterally, Normal air movement Cardiovascular: No edema, Regular rate/rhythm, Normal S1 S2 Gastrointestinal: Normal bowel sounds, Soft and benign, Non-distended, Other (Clean trocar wounds) Musculoskeletal: No swelling, No tenderness Integumentary: No rashes, No cyanosis Neurological: Normal strength at 5/5 x4 extr - Studies Laboratory Data (last 24 hrs) 01/10/23 04:17: Sodium 142, Potassium 3.8, BUN 17, Creatinine 1.00, Glucose 116 H, Total Bilirubin 0.5, AST 26, ALT 39, Alkaline Phosphatase 48 D, Lipase 26 01/10/23 04:17: WBC 7.90, Hgb 12.9 D, Hct 39.1, Plt Count 284 01/09/23 17:30: Sodium 139, Potassium 3.9, BUN 14, Creatinine 1.11 H, Glucose 122 H, Total Bilirubin 0.5, AST 32, ALT 49, Alkaline Phosphatase 63, Lipase 31 01/09/23 17:30: WBC 9.80, Hgb 14.5, Hct 44.7, Plt Count 362 Assessment And Plan - Plan Cholelithiasis without obstruction Symptomatic cholelithiasis status post lap cholecystectomy by Dr. Ferrell Prn analgesics, anti emetics, Diet as tolerated. HTN Continue home meds DM AC ACHS, SSI DVT Heparin subcu Possible discharge in the a.m.
[2023-01-11] MEDS: PIPER TAZO 3.375 GM in NA CHLORIDE 0.9% 100 ML IV SCH ×2 (01:51→08:35)
[2023-01-11] MEDS ORDERED: PIPERACIL/TAZO 3.375 GM VIAL IV ONE (01:57)
[2023-01-11] MEDS ORDERED: NA CHLORIDE 0.9% 100 ML ONE (01:58)
[2023-01-11 04:36] LABS: Absolute Lymphocytes (CBC) 1.5 K/uL (0.7-4.9); Hematocrit 39.2 % (36.0-45.0); Lymphocytes % 14.3 % (15.3-44.8); MCV 89.4 fL (80-100); MPV 8.8 fL (7.6-11.3); RBC Red Blood Cell Count 4.39 M/uL (3.86-4.86)
[2023-01-11] MEDS: NA CHLORIDE 0.9% 1,000 ML IV SCH (04:59)
[2023-01-11 05:02] LABS: Albumin 3.1 g/dL (3.4-5.0); Bilirubin Total 0.3 mg/dL (0.2-1.0); Potassium 4.2 mEq/L (3.5-5.1); Protein, Total 6.7 g/dL (6.4-8.2)
[2023-01-11] MEDS: ONDANSETRON 4 MG/2 ML VIAL IV PRN (07:35)
--- NOTE | 2023-01-11 08:20 | P.DS ---
Admission Date: 01/10/23 Discharge Date: 01/11/23 Disposition: ROUTINE DISCHARGE Discharge Condition: GOOD Reason for Admission: Abdominal pain - Problems (1) Symptomatic cholelithiasis Status: Acute (2) Essential hypertension Status: Acute (3) Type II diabetes mellitus Status: Acute Brief History of Present Illness: 52 year old female with past medical history of HTN, DM type 2 presents to the emergency room for abdominal pain. She reports she was awaken in her sleep with RUQ dull, achy abdominal pain that radiated to her shoulder, with pain of 8/10. She report associated belching, gas pain, nausea, vomiting x2 this am. She reports symptoms was worse with oral intake. She reported a similar episode 1 mo ago after eating greasy food. She denies use of alcohol, fever, chills, chest pain, shortness of breath, cough. RUQ sonogram showed cholelithiasis, no evidence of acute cholecystitis. Surgery Dr. Ferrell was contacted and patient hospitalized for further management. Hospital Course: Patient was admitted to the medical floor and started on antibiotics. She was seen and evaluated by Dr. Ferrell who performed lap cholecystectomy. Postop. Was uneventful. Patient was monitored overnight with no issues. She tolerated her diet and has been ambulatory. Patient is deemed clinically stable for discharge. Vital Signs/Physical Exam: Temp Pulse Resp BP Pulse Ox 97.8 F 61 15 102/50 L 95 01/11/23 04:00 01/11/23 04:00 01/11/23 07:35 01/11/23 04:00 01/11/23 07:35 General: Alert, In no apparent distress, Oriented x3 HEENT: Mucous membr. moist/pink Neck: Supple, JVD not distended Respiratory: Clear to auscultation bilaterally, Normal air movement Cardiovascular: No edema, Regular rate/rhythm, Normal S1 S2 Gastrointestinal: Normal bowel sounds, Soft and benign, Non-distended, No tenderness Musculoskeletal: No swelling Integumentary: No rashes, No cyanosis Neurological: Normal strength at 5/5 x4 extr Laboratory Data at Discharge: WBC 10.30 thou/uL (4.3-10.9) 01/11/23 03:50 Hgb 13.1 g/dL (12.0-15.0) 01/11/23 03:50 Hct 39.2 % (36.0-45.0) 01/11/23 03:50 Plt Count 285 thou/uL (152-406) 01/11/23 03:50 Sodium 138 mEq/L (136-145) 01/11/23 03:50 Potassium 4.2 mEq/L (3.5-5.1) 01/11/23 03:50 BUN 13 mg/dL (7-18) 01/11/23 03:50 Creatinine 0.92 mg/dL (0.55-1.02) 01/11/23 03:50 Glucose 155 mg/dL (74-106) H 01/11/23 03:50 Total Bilirubin 0.3 mg/dL (0.2-1.0) 01/11/23 03:50 AST 45 U/L (15-37) H 01/11/23 03:50 ALT 64 U/L (13-56) H 01/11/23 03:50 Alkaline Phosphatase 53 U/L (45-117) 01/11/23 03:50 Lipase 26 U/L (13-75) 01/10/23 04:17 Home Medications: Lisinopril [Zestril] 40 mg PO DAILY 01/09/23 Sitagliptin Phosphate [Januvia] 100 mg PO DAILY 01/09/23 Diet: Norris Activity: No lifting more than 10 lbs Followup: Adithya Ferrell MD [ACTIVE - CAN ADMIT] - Time spent managing pt's care (in minutes): 28
[2023-01-11 08:38] VITALS: BP 136/77; TEMP 97.7
[2023-01-11] MEDS ORDERED: ENOXAPARIN 40 MG/0.4 ML SQ SCH (09:00)
== END 2023-01-11 09:55 | disposition home or self-care (01) | DRG 418 ==
LOC: ER 17:03 → ERHOLD 20:17 → 2ND 20:49 → OBSVTOIN 01-10 15:22
PROVIDERS: ADMIT Internal Medicine; ATTEND Internal Medicine
PROC: BF50200 Other Imaging of Bile Ducts using Fluorescing Agent, Indocyanine Green Dye, Intraoperative (ICD-10-PCS; 2023-01-10)
PROC: 0FT44ZZ Resection of Gallbladder, Percutaneous Endoscopic Approach (ICD-10-PCS; principal; 2023-01-10 10:15)
DX: K80.20 Calculus of gallbladder without cholecystitis without obstruction (principal); Z68.41 Body mass index [BMI] 40.0-44.9, adult; E66.01 Morbid (severe) obesity due to excess calories; I10 Essential (primary) hypertension; E11.9 Type 2 diabetes mellitus without complications; F17.210 Nicotine dependence, cigarettes, uncomplicated; Z71.6 Tobacco abuse counseling; Z79.899 Other long term (current) drug therapy; Z90.710 Acquired absence of both cervix and uterus; Z82.49 Family history of ischemic heart disease and other diseases of the circulatory system
CPT/HCPCS: 36415; 76705; 80048; 80053; 80076; 81001; 81025; 82947; 83690; 84484; 85025; 88304; 96361; 96365; 96366; 96375; 99285; G0378; J1100; J1170; J1650; J2250; J2405; J2543; J2704; J2710; J3010; J7030

== ENCOUNTER 2024-01-19 09:17 | Emergency (ER) | payer BC ==
--- NOTE | 2024-01-19 10:18 | RAD REPORT ---
EXAM DESCRIPTION: RAD - Foot Left 3 View - 01/19/2024 10:00 am CLINICAL HISTORY: Avulsion first toe nail bed FINDINGS: No fracture or dislocation is seen. Large calcaneal spur
--- NOTE | 2024-01-19 10:58 | ER ---
Nurse's Notes [facility] Name: Page Celestin Age: 53 yrs Sex: Female : 1970 Arrival Date: 01/19/2024 Time: 09:17 Bed 13 Private MD: Diagnosis: Nail Avulsion Presentation: 01/18 09:36 Chief complaint: Patient states: Avulsion to L foot 1st digit nailbed this AM. No ll1 active bleeding. Coronavirus screen: Client denies travel out of the [place] in the last 14 days. At this time, the client does not indicate any symptoms associated with coronavirus-19. Ebola Screen: Patient denies travel to an Ebola-affected area in the 21 days before illness onset. Initial Sepsis Screen: Does the patient meet any 2 criteria? No. Patient's initial sepsis screen is negative. Does the patient have a suspected source of infection? No. Patient's initial sepsis screen is negative. Risk Assessment: Do you want to hurt yourself or someone else? Patient reports no desire to harm self or others. Onset of symptoms was January 19, 2024. 09:36 Method Of Arrival: Ambulatory ll1 09:36 Acuity: KYRA 4 ll1 Historical: - Allergies: 09:36 No Known Allergies; ll1 - PMHx: 09:36 Diabetes - NIDDM; Hypertension; ll1 - PSHx: 09:36 hysterectomy; ll1 09:36 Cholecystectomy; ll1 - Immunization history:: Adult Immunizations. - Infectious Disease History:: Denies. - Social history:: Smoking status: Patient denies any tobacco usage or history of. - Family history:: not pertinent. - Hospitalizations: : No recent hospitalization is reported. Screenin:30 [facility] ED Fall Risk Assessment (Adult) History of falling in the last 3 months, mb9 including since admission Yes- physiologic fall (2 pts) Confusion or Disorientation No (0 pts) Intoxicated or Sedated No (0 pts) Impaired Gait No (0 pts) Mobility Assist Device Used No (0 pt) Altered Elimination No (0 pt) Score/Fall Risk Level 3 or more points = High Risk Oriented to surroundings, Maintained a safe environment, Educated pt \T\ family on fall prevention, incl call for assistance when getting out of bed. Abuse screen: Denies threats or abuse. Nutritional screening: No deficits noted. Tuberculosis screening: No symptoms or risk factors identified. Assessment: 10:29 General: Appears in no apparent distress. Behavior is calm, cooperative. Pain: mb9 Complains of pain in left foot. Neuro: Wilson Agitation-Sedation Scale (RASS): 0 - Alert and Calm Level of Consciousness is awake, alert, obeys commands, Oriented to person, place, time, situation, Appropriate for age. Cardiovascular: Patient's skin is warm and dry. Respiratory: Airway is patent Respiratory effort is even, unlabored, Respiratory pattern is regular, symmetrical. GI: No signs and/or symptoms were reported involving the gastrointestinal system. : No signs and/or symptoms were reported regarding the genitourinary system. Derm: Skin is pink, warm \T\ dry. Musculoskeletal: Range of motion: intact in all extremities. Injury Description: Avulsion sustained to left great toe is partial. Vital Signs: 09:36 BP 153 / 104; Pulse 77; Resp 17; Temp 97; Pulse Ox 99% ; Weight 108.86 kg; Height 5 ft. ll1 6 in. ; Pain 10/10; 09:36 Body Mass Index 38.74 (108.86 kg, 167.64 cm) ll1 09:36 Pain Scale: Adult ll1 ED Course: 09:22 Patient arrived in ED. im 09:27 Kenrick Bcaon MD is Attending Physician. rn 09:36 Arm band placed on. ll1 09:37 Triage completed. ll1 10:01 Foot Left 3 View In Process Unspecified. EDMS 10:07 Lore José, GLORY is Primary Nurse. mb9 10:19 Patient placed in an exam room, on a stretcher. ll1 10:28 Wound care: to Avulsion located on left great toe was cleaned with Hibiclens, soaked in mb9 normal saline solution, irrigated with normal saline, dressed with 4X4s, Kerlix, cling. 10:30 Bed in low position. Call light in reach. Side rails up X 1. Provided Education on: mb9 press call light if needing anything. Client placed on continuous cardiac and pulse oximetry monitoring. NIBP monitoring applied. 10:30 No provider procedures requiring assistance completed. Patient did not have IV access mb9 during this emergency room visit. Administered Medications: No medications were administered Medication: 10:31 VIS not applicable for this client. mb9 Outcome: 10:58 Discharge ordered by . glory 11:06 Discharged to home ambulatory, cathryn 11:06 Condition: stable 11:06 Discharge instructions given to patient, Instructed on discharge instructions, follow up and referral plans. Demonstrated understanding of instructions, follow-up care, medications, Prescriptions given X 1, 11:06 Patient left the ED. mb9 Signatures: Dispatcher [employer] EDMS Kenrick Bacon MD MD rn Lewis, Lynsay, RN RN 1 Lore José RN RN mb9 Tara Porras
--- NOTE | 2024-01-19 10:59 | EDPHYS ---
Physician Documentation [facility] Name: Page Celestin Age: 53 yrs Sex: Female : 1970 Arrival Date: 01/19/2024 Time: 09:17 Bed 13 Private MD: ED Physician Kenrick Bacon HPI: 01/18 09:57 This 53 yrs old Female presents to ER via Ambulatory with complaints of Toe Injury - rn left foot big toe. 09:57 The patient presents with an injury, pain. The complaints affect the left foot. Onset: rn The symptoms/episode began/occurred just prior to arrival. Modifying factors: The symptoms are alleviated by nothing, the symptoms are aggravated by weight bearing. Associated signs and symptoms: Pertinent negatives: warmth, weakness. Severity of symptoms: At their worst the symptoms were mild, in the emergency department the symptoms are unchanged. The patient has not experienced similar symptoms in the past. The patient has not recently seen a physician. Patient reports slipped on tile and stubbed her left great toe on the edge of tile. Was not wearing shoes. Nail was partially elevated but does not feel like she broke her toe. No pain elsewhere. Is diabetic so came in for evaluation.. Historical: - Allergies: 09:36 No Known Allergies; ll1 - PMHx: 09:36 Diabetes - NIDDM; Hypertension; ll1 - PSHx: 09:36 hysterectomy; ll1 09:36 Cholecystectomy; ll1 - Immunization history:: Adult Immunizations. - Infectious Disease History:: Denies. - Social history:: Smoking status: Patient denies any tobacco usage or history of. - Family history:: not pertinent. - Hospitalizations: : No recent hospitalization is reported. ROS: 09:57 Constitutional: Negative for fever, chills, and weight loss, MS/Extremity: Positive for rn injury to the left great toenail Exam: 10:53 MS/ Extremity: Pulses equal, no cyanosis. Neurovascular intact. Full, normal range rn of motion.Partial nail avulsion of the left great toe. No active bleeding. Majority of nail still and nailbed/matrix. Vital Signs: 09:36 BP 153 / 104; Pulse 77; Resp 17; Temp 97; Pulse Ox 99% ; Weight 108.86 kg; Height 5 ft. ll1 6 in. ; Pain 10; 09:36 Body Mass Index 38.74 (108.86 kg, 167.64 cm) ll1 09:36 Pain Scale: Adult ll1 MDM: 09:27 Patient medically screened. rn 10:53 Differential diagnosis: fracture, Nail avulsion, toe fracture. Data reviewed: vital rn signs, nurses notes, radiologic studies, plain films, and as a result, I will discharge patient. Counseling: I had a detailed discussion with the patient and/or guardian regarding the historical points, exam findings, and any diagnostic results supporting the discharge/admit diagnosis, radiology results, the need for outpatient follow up, to return to the emergency department if symptoms worsen or persist or if there are any questions or concerns that arise at home. Response to treatment: the patient's symptoms have mildly improved after treatment, and as a result, I will discharge patient. Special discussion: I discussed with the patient/guardian in detail that at this point there is no indication for admission to the hospital. It is understood, however, that if the symptoms persist or worsen the patient needs to return immediately for re-evaluation. ED course: Attempted further reduction of the nail avulsion into the nailbed, patient did not tolerate very well. After long discussion decision made to leave nail as his as more than two thirds of nailbed still intact and no active bleeding. Wound was cleaned and irrigated by nursing and dressed. Nail will likely fall off and new nail regrow. Will discharge home with antibiotics given avulsion and is diabetic. I have personally reviewed all of the results, including but not limited to imaging deemed necessary to safely discharge this patient at this time. All results given to and printed out for patient. I personally went over all the results with the patient and answered all questions. Patient will follow-up with PCP and or specialist as discussed. Return precautions given and understood.. 01/18 10:01 Order name: Foot Left 3 View; Complete Time: 10:29 EDMS 01/18 09:34 Order name: Wound Care; Complete Time: 10:28 ll1 01/18 09:34 Order name: Wound dressing; Complete Time: 10:28 ll1 Administered Medications: No medications were administered Disposition Summary: 01/19/24 10:58 Discharge Ordered Notes: Location: Home rn Problem: new rn Symptoms: have improved rn Condition: Stable rn Diagnosis - Nail Avulsion rn Followup: rn - With: Private Physician - When: As needed - Reason: Recheck today's complaints, Re-evaluation by your physician Discharge Instructions: - Discharge Summary Sheet rn - Nail Avulsion rn Forms: - Medication Reconciliation Form rn - Antibiotic research program internship - Prescription Opioid Use rn - Patient Portal Instructions rn - Leadership Thank You Letter rn Prescriptions: - Cephalexin 500 mg Oral Capsule - take 1 capsule ORAL route every 12 hours for 10 days; 20 capsule; Refills: 0, rn Product Selection Permitted Signatures: Dispatcher [employer] Kenrick Keyes MD MD rn Lewis, Lynsay, RN RN ll1 Corrections: (The following items were deleted from the chart) 10:01 09:35 Foot Right 3 View+[email or web address] ordered. [facility]
[2024-01-19 11:23] VITALS: BP 153/104; TEMP 97; O2SAT 99
== END 2024-01-19 11:06 | disposition home or self-care (01) ==
LOC: ER 09:17
DX: S91.202A Unspecified open wound of left great toe with damage to nail, initial encounter (principal)
CPT/HCPCS: 99284